=== PATIENT | male | born 1945 | race Caucasian/White ===

== ENCOUNTER 2017-11-28 13:20 | Emergency (ER) | payer OTHER, MEDICARE, SELFPAY ==
[2017-11-28 13:28] VITALS: BP 146/63; PULSE 84; RESP 18; TEMP 37.2; O2SAT 96; BMI 41.0
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
[2017-11-28 13:43] VITALS: BP 176/92; PULSE 89; RESP 20; O2SAT 95
[2017-11-28 14:15] VITALS: BP 147/81; PULSE 71; RESP 15; O2SAT 97
--- NOTE | 2017-11-28 14:27 | PC.NURSE ---
dr walsh at bedside performing FAST exam with ultrasound
[2017-11-28 14:51] VITALS: BP 144/75; PULSE 79; RESP 15; O2SAT 99
== END 2017-11-28 14:55 | disposition home or self-care (01) ==
PROVIDERS: Emergency Provider Emergency Medicine; PCP Internal Medicine
DX: R07.89 Other chest pain (principal); R04.0 Epistaxis; S80.211A Abrasion, right knee, initial encounter; S80.212A Abrasion, left knee, initial encounter; V49.9XXA Car occupant (driver) (passenger) injured in unspecified traffic accident, initial encounter
CPT/HCPCS: 30901; 71045; 99283

== ENCOUNTER 2017-11-30 10:46 | Emergency (ER) | payer OTHER, SELFPAY ==
[2017-11-30 10:53] VITALS: BP 144/61; PULSE 72; RESP 20; TEMP 36.6; O2SAT 97; BMI 41.0
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
[2017-11-30] MEDS: OXYCODONE/ACETAMINOPHEN 5/325 TABLET 1 TAB PO (11:48)
[2017-11-30 12:50] VITALS: BP 127/66; PULSE 68; RESP 94
[2017-11-30] MEDS: BACITRACIN OINT 0.9 GM PCKT 1 APPLIC TOP (12:57)
== END 2017-11-30 13:23 | disposition home or self-care (01) ==
PROVIDERS: Emergency Provider Student in an Organized Health Care Education/Training Program; PCP Internal Medicine
DX: S82.401A Unspecified fracture of shaft of right fibula, initial encounter for closed fracture (principal); R07.89 Other chest pain; V29.9XXA Motorcycle rider (driver) (passenger) injured in unspecified traffic accident, initial encounter
CPT/HCPCS: 29515; 73610; 73630; 99282; 99283

== ENCOUNTER → 2017-12-08 11:09 | Outpatient (CLI) | payer OTHER, SELFPAY ==
[2017-12-08 13:01] LABS: Add Manual Diff / Slide Review NO; Eosinophils Percent Auto 0.7 % (2-4); Hematocrit 40.7 % (41-53); Hemoglobin 14.4 g/dL (13.5-17.5); Lymphocytes Percent Auto 16.8 % (25-40); Mean Corpuscular HGB Conc 35.3 % (30-36); Mean Corpuscular Hemoglobin 32.6 PG (26-34); Mean Corpuscular Volume 92.5 fL (80-100); Monocytes Percent Auto 8.4 % (3-14); Neutrophils Absolute Auto 4600 /uL (3000-5900); Neutrophils Percent Auto 73.1 % (50-75); Platelet Count 223 X10^3/uL (150-400); Red Cell Distribution Width 13.2 % (11.6-14.8); White Blood Cell Count 6.4 X10^3/uL (4.5-11.0)
[2017-12-08 13:03] LABS: Hemoglobin A1C% w Est Avg Glu 6.8 % (4.0-6.0)
[2017-12-08 13:08] LABS: Alanine Aminotransferase 41 IU/L (21-72); Albumin Globulin Ratio 1.1 (1.0-2.8); Alkaline Phosphatase 114 U/L (38-126); Aspartate Aminotransferase 47 IU/L (17-59); BUN Creatinine Ratio 23.3 (6-22); Bilirubin Total 0.8 mg/dL (0.2-1.3); Blood Urea Nitrogen 14 mg/dL (9-20); Calcium 8.8 mg/dL (8.4-10.2); Carbon Dioxide 26 mmol/L (22-32); Chloride 98 mmol/L (98-107); Estimated Glomerular Filt Rate > 60.0 mL/min (>60); Globulin 3.8 g/dL (1.7-4.1); Glucose 133 mg/dL (80-110); HEMOLYSIS 49 (0-50); Potassium 4.9 mmol/L (3.4-5.1); Sodium 136 mmol/L (137-145); Total Protein 7.8 g/dL (6.3-8.2)
== END ==
PROVIDERS: PCP Internal Medicine; Visit Provider Internal Medicine
DX: E11.9 Type 2 diabetes mellitus without complications (principal); E11.65 Type 2 diabetes mellitus with hyperglycemia
CPT/HCPCS: 36415; 80053; 83036; 85025

== ENCOUNTER → 2018-04-09 14:30 | Outpatient (CLI) | payer OTHER, SELFPAY ==
--- NOTE | 2018-04-09 | DI.RAD.S_ITS ---
PROCEDURE: XR CERVICAL SPINE 2V OR 3V INDICATIONS: neck pain TECHNIQUE: 4 view(s) of the cervical spine were acquired. COMPARISON: None. FINDINGS: Bones: Patient is status post anterior fusion at C4-C7 levels and posterior fusion at C3 and C4 levels. No gross hardware loosening or failure is seen. Straightening of normal cervical lordosis is noted. No acute compression fracture or traumatic spondylolisthesis. Degenerative endplate changes are noted at C3-4 level. The lateral masses of C1 appear intact on the odontoid view. No suspicious bony lesions. Soft tissues: No prevertebral soft tissue swelling. IMPRESSION: Prior fusion of cervical spine from C3-C7 levels with straightening of normal cervical lordosis. No gross hardware complication. No acute compression fracture or traumatic spondylolisthesis. Dictated by: Keo Figueredo M.D. on 04/09/2018 at 15:09 Approved by: Keo Figueredo M.D. on 04/09/2018 at 15:15
== END ==
PROVIDERS: PCP Internal Medicine; Visit Provider Internal Medicine
DX: M54.2 Cervicalgia (principal); Z98.1 Arthrodesis status
CPT/HCPCS: 72040

== ENCOUNTER → 2018-06-08 13:23 | Outpatient (CLI) | payer OTHER, SELFPAY ==
--- NOTE | 2018-06-08 | DI.MRI.S_ITS ---
PROCEDURE: MR STROKE Pre- and post-contrast brain MRI, non-contrast brain MR angiogram, pre- and postcontrast neck MR angiogram INDICATIONS: ATAXIA TECHNIQUE: Brain: Noncontrast axial T1 spin echo, axial T2 fast spin echo, sagittal and axial FLAIR, coronal T2 fast spin echo, axial gradient echo, axial diffusion and ADC through the brain. After the administration of contrast, axial 3D VIBE of the cranial vasculature and brain. Brain MRA: Non-contrast 3-D time of flight MR angiogram, with multiple eutumpw-sqluqgkwi-fnqqshzxto (MIP) reformats performed. Neck MRA: Axial and sagittal TruFISP through the neck. Coronal dynamic MR angiogram during administration of contrast in the arterial and venous phases, with 3-dimenstional epimbwx-sdqqhtetk-gmefipdcjq (MIP) reformats constructed from subtraction images. COMPARISON: None. FINDINGS: Image quality: Excellent. BRAIN: CSF spaces: Ventricles are normal in size and shape. Basal cisterns are patent. No extra-axial fluid collections. Brain: No intracranial bleeds or mass effects. There is moderate diffuse cerebral volume loss. There is a mild degree of patchy high flow or signal within the periventricular and subcortical white matter, consistent with small vessel ischemic disease. Ramos-white matter interface is normal. Diffusion weighted images show no acute ischemic insults. Brainstem appears normal. Normal intravascular flow voids are present. No abnormal intracranial enhancement. Skull and face: Calvarial marrow signal is normal. Orbits appear normal. Sinuses: Sinuses and mastoids are clear. BRAIN MR ANGIOGRAM: Anterior circulation: Intracranial internal carotid arteries are normal in size and enhancement. The flow within the paired anterior cerebral arteries is normal and symmetric. The flow within the middle cerebral arteries is normal and symmetric. The anterior communicating artery is seen. No stenoses, occlusions, or aneurysms. Posterior circulation: The visualized portions of the vertebral arteries demonstrate normal caliber, and join to form a normal appearing basilar artery. The flow within the posterior cerebral arteries is normal and symmetric. No stenoses, occlusions, or aneurysms. NECK MR ANGIOGRAM: Carotids: Great vessels demonstrate a conventional anatomy as they arise from the aortic arch. The origins of the common carotid arteries appear patent. The calibers and courses of both common carotid arteries are normal. Mild diffuse stenosis of the proximal right internal carotid artery, measured at roughly 20%. Mild, roughly 20% stenosis of the proximal left internal carotid artery. Posterior circulation: High-grade right vertebral artery origin stenosis. Left vertebral artery origin is patent. More superior portions of both vertebral arteries demonstrate normal course and caliber, and join to form a normal appearing basilar artery. Miscellaneous: Moderate right subclavian artery origin stenosis. Pre-contrast images through the neck show no soft tissue abnormalities. IMPRESSION: BRAIN MRI: 1. No acute intracranial abnormality. No recent infarct. 2. Volume loss and small vessel ischemic disease. BRAIN MR ANGIOGRAM: Negative cerebral MR angiography. NECK MR ANGIOGRAM: 1. Mild bilateral internal carotid artery stenoses. 2. High-grade right vertebral artery origin stenosis. 3. Patent left vertebral artery. Dictated by: Johanna Sheriff M.D. on 06/08/2018 at 15:22 Approved by: Johanna Sheriff M.D. on 06/08/2018 at 15:29
== END ==
PROVIDERS: PCP Internal Medicine; Visit Provider Internal Medicine
DX: I65.23 Occlusion and stenosis of bilateral carotid arteries (principal); I65.01 Occlusion and stenosis of right vertebral artery; R27.0 Ataxia, unspecified
CPT/HCPCS: 70553; A9579

== ENCOUNTER → 2018-08-06 13:36 | Outpatient (CLI) | payer OTHER, SELFPAY ==
[2018-08-06 15:12] LABS: B Type Natriuretic Peptide < 100 (<100)
[2018-08-06 15:13] LABS: BUN Creatinine Ratio 26.7 (6-22); Blood Urea Nitrogen 32 mg/dL (9-20); Calcium 9.6 mg/dL (8.4-10.2); Carbon Dioxide 24 mmol/L (22-32); Chloride 98 mmol/L (98-107); Glucose 221 mg/dL (80-110); HEMOLYSIS < 15 (0-50); Potassium 4.2 mmol/L (3.4-5.1); Sodium 136 mmol/L (137-145)
== END ==
PROVIDERS: PCP Internal Medicine; Visit Provider Internal Medicine
DX: I25.10 Atherosclerotic heart disease of native coronary artery without angina pectoris (principal); E11.9 Type 2 diabetes mellitus without complications
CPT/HCPCS: 36415; 80048; 83880

== ENCOUNTER 2018-10-05 11:29 | Emergency (ER) | payer OTHER, MEDICARE, SELFPAY ==
[2018-10-05 11:40] VITALS: BP 125/68; PULSE 80; RESP 14; TEMP 36.7; O2SAT 98
--- NOTE | 2018-10-05 11:43 | DI.RAD.S_ITS ---
PROCEDURE: XR WRIST RT MIN 3V INDICATIONS: fell one week ago, pain right wrist. IN ED WR TECHNIQUE: 4 views of the wrist were acquired. COMPARISON: None. FINDINGS: Bones: No fractures or dislocations. No suspicious bony lesions. Prominent degenerative changes are noted involving the basal joint of the thumb. There also are degenerative changes involving the metacarpal phalangeal joints. Soft tissues: No suspicious soft tissue calcifications. Vascular calcifications about the wrist are present. A small metallic density is seen overlying the film. IMPRESSION: Prominent degenerative changes of the wrist without an acute fracture evident. Dictated by: Herber Najera M.D. on 10/05/2018 at 11:09 Approved by: Herber Najera M.D. on 10/05/2018 at 11:10
[2018-10-05 13:34] VITALS: PULSE 72
--- NOTE | 2018-10-05 13:43 | ED_ITS ---
HPI - Extremity Injury (Upper) <LORI Montoya - Last Filed: 10/05/18 13:55> General Chief Complaint: Extremity Injury, Upper Stated Complaint: Fell, r wrist injury Time Seen by Provider: 10/05/18 13:33 Source: patient Mode of arrival: ambulatory Limitations: no limitations History of Present Illness HPI narrative: Patient is a 73-year-old male Former smoker with history of hypertension who presents with a chief complaint of right wrist pain. He states he fell last week on an outstretched right arm and has since complained a pain in his right wrist. He has been using ktrr-[id number] pain medication for his wrist pain. Denies any numbness or tingling. He states he thought he could come and get an x-ray and leave. He denies any other injury from his fall. Related Data Home Medications Medication Instructions Recorded Confirmed losartan 100 mg PO DAILY #0 12/06/16 11/30/17 amlodipine 10 mg PO DAILY 11/28/17 11/30/17 aspirin 81 mg PO DAILY 11/28/17 11/30/17 glimepiride 4 mg PO BID 11/28/17 11/30/17 metoprolol succinate 100 mg PO DAILY 11/28/17 11/30/17 simvastatin 40 mg PO DAILY 11/28/17 11/30/17 ibuprofen [Advil] 1 dose PO PRN PRN 11/30/17 11/30/17 naproxen [Naprosyn] 1 tab PO PRN PRN 11/30/17 11/30/17 Previous Rx's Medication Instructions Recorded hydrocodone-acetaminophen [Vicodin] 1 tab PO Q4-6H PRN #14 tab 11/30/17 Allergies Allergy/AdvReac Type Severity Reaction Status Date / Time Penicillins [PENICILLINS] Allergy Unknown Verified 10/05/18 11:43 Review of Systems <OLRI Montoya - Last Filed: 10/05/18 13:55> Review of Systems GENERAL: Denies chills, fatigue, malaise, fever, sweats. HEENT: Denies sinus pain, ear pain, sore throat, difficulty swallowing, dizziness. RESPIRATORY: Denies dyspnea, cough, wheezing, hemoptysis, sputum. CARDIOVASCULAR: Denies chest pain, palpitations, orthopnea, edema, GASTROINTESTINAL: Denies nausea, vomiting, abdominal pain, diarrhea, constipation, melena. : Denies dysuria, frequency, incontinence, hematuria, urinary retention. MUSCULOSKELETAL: See HPI SKIN: See HPI NEUROLOGIC: Denies weakness, headache, numbness, change in speech, confusion, seizures, incoordination. PSYCHIATRIC: No concerning psychosocial issues. 12 point review of systems is negative except for those stated above PFSH <LORI Montoya - Last Filed: 10/05/18 13:55> Social History Smoking Status: Former smoker Exam <LORI Montoya - Last Filed: 10/05/18 13:55> Narrative Exam Narrative: GENERAL: This is a well-nourished, well-developed patient, sitting in chair HEAD: Atraumatic. Normocephalic. No temporal or scalp tenderness. EYES: Pupils equal round and reactive. Extraocular motions intact. No scleral icterus. No injection or drainage. ENT: Nose without bleeding, purulent drainage or septal hematoma. Throat without erythema, tonsillar hypertrophy or exudate. Uvula midline. Airway patent. NECK: Trachea midline. No JVD or lymphadenopathy. Supple, nontender, no meningeal signs. CARDIOVASCULAR: Regular rate and rhythm RESPIRATORY: no cough. No increased respiratory effort. EXTREMITIES: General pain to palpation right wrist. Full range of motion noted. Patient is able flex and extend right wrist. Pronate and supinate without pain. Positive radial pulses noted. patient able do thumbs up, thumbs down, make fist. BACK: Nontender without deformity or crepitance. No flank tenderness. NEURO: AOx3. SKIN: Ecchymosis noted on the dorsum of the hand/posterior aspect of the wrist on the ulnar aspect. Skin is intact. No abrasion or laceration noted. Initial Vital Signs Initial Vital Signs: Vital Signs Temperature 98.1 F 10/05/18 11:40 Pulse Rate 80 10/05/18 11:40 Respiratory Rate 14 10/05/18 11:40 Blood Pressure 125/68 10/05/18 11:40 Pulse Oximetry 98 10/05/18 11:40 <Kala Callejas DO - Last Filed: 10/08/18 08:54> Initial Vital Signs Initial Vital Signs: Vital Signs Temperature 98.1 F 10/05/18 11:40 Pulse Rate 80 10/05/18 11:40 Respiratory Rate 14 10/05/18 11:40 Blood Pressure 125/68 10/05/18 11:40 Pulse Oximetry 98 10/05/18 11:40 Course <LORI Montoya - Last Filed: 10/05/18 13:55> Orders Ordered: ED Orders 10/05/18 11:43 XR wrist RT min 3V Stat Vital Signs - 8 hr 10/05/18 11:40 10/05/18 13:34 Temperature 98.1 F Pulse Rate 80 Pulse Rate [Right Radial] 72 Respiratory Rate 14 Blood Pressure 125/68 Pulse Oximetry 98 <Kala Callejas DO - Last Filed: 10/08/18 08:54> Orders Ordered: ED Orders 10/05/18 11:43 XR wrist RT min 3V Stat Vital Signs - 8 hr 10/05/18 11:40 10/05/18 13:34 Temperature 98.1 F Pulse Rate 80 Pulse Rate [Right Radial] 72 Respiratory Rate 14 Blood Pressure 125/68 Pulse Oximetry 98 MDM - Extremity Injury (Upper) <LORI Montoya - Last Filed: 10/05/18 13:55> Imaging Data wrist fracture: Radiologist's impression: Anthony Enrique 73 M 1945 [place] [address] XRay Report Signed Patient: Anthony Enrique LMR#: [id number] : [id number]:[id number] Age/Sex: 73 / MDate of Service: 10/05/18 Loc: ED Accession Number: [id number] Procedure: XR wrist RT min 3V Ordering Provider: Kala Callejas D.O. PROCEDURE: XR WRIST RT MIN 3V INDICATIONS: fell one week ago, pain right wrist. IN ED WR TECHNIQUE: 4 views of the wrist were acquired. COMPARISON: None. FINDINGS: Bones: No fractures or dislocations. No suspicious bony lesions. Prominent degenerative changes are noted involving the basal joint of the thumb. There also are degenerative changes involving the metacarpal phalangeal joints. Soft tissues: No suspicious soft tissue calcifications. Vascular calcifications about the wrist are present. A small metallic density is seen overlying the film. IMPRESSION: Prominent degenerative changes of the wrist without an acute fracture evident. Dictated by: Herber Najera M.D. on 10/05/2018 at 11:09 Approved by: Herber Najera M.D. on 10/05/2018 at 11:10 [facility] Narrative Medical decision making narrative: The patient is a 73-year-old male who presents with a chief complaint of right wrist pain after ground level fall last week. He is unable to state clearly why he did not seek care when he fell. He does not have any acute fractures notable on his x-ray. I discussed at length continued conservative measures including rest ice compression elevation as well as lbxh-xda-yfzonhz pain medication as needed and able. I offered to wrap his wrist with an Molina wrap to the emergency department he declined. I encouraged him to follow up with his primary care provider in the next few days. Patient questions or concerns upon discharge. return precautions of any acute concerns discussed. Discharge Plan Departure Patient Disposition: Home Clinical Impression: Acute wrist pain Qualifiers: Laterality: right Qualified Code(s): M25.531 - Pain in right wrist Contusion Qualifiers: Encounter type: initial encounter Contusion area: wrist Laterality: right Qualified Code(s): S60.211A - Contusion of right wrist, initial encounter Discharge Date/Time: 10/05/18 14:04 Interventions: ED Discharge Assessment Last Done: 10/05/18 14:04 Instructions: DI for Contusion, How To Perform RICE (Rest, Ice, Compress, Elevate), DI for Wrist Pain Activity Restrictions/Additional Instructions: Your x-ray shows no sign of fracture today. There are some degenerative changes noted, indicating the possibility of arthritis. Please use [id number] pain medications as needed and able. Please use rest ice compression elevation. Please follow up with her primary care provider if worsening or no improvement in the next few weeks. Please come back to the emergency department for any acute concerns. Prescriptions: No Action losartan 100 MG tablet 100 mg PO DAILY Qty: 0 RF: 0 metoprolol succinate 100 mg tablet extended release 24 hr 100 mg PO DAILY RF: 0 aspirin 81 mg Tablet,Delayed Release (Dr/Ec) 81 mg PO DAILY RF: 0 simvastatin 40 mg tablet 40 mg PO DAILY RF: 0 amlodipine 10 mg tablet 10 mg PO DAILY RF: 0 glimepiride 4 mg tablet 4 mg PO BID RF: 0 naproxen [Naprosyn] 500 mg Tablet 1 tab PO PRN PRN (Reason: Pain, Moderate) RF: 0 ibuprofen [Advil] 200 mg Tablet 1 dose PO PRN PRN (Reason: Pain, Moderate) RF: 0 hydrocodone-acetaminophen [Vicodin] 5-300 mg tablet 1 tab PO Q4-6H PRN (Reason: pain) Qty: 14 RF: 0 Referrals: Evan Jimenez MD [Primary Care Provider] - <Kala Callejas DO - Last Filed: 10/08/18 08:54> Cosign ED Attending Cosignature Attestation: I was immediately available in the department for consultation. This documentation has been reviewed and I agree with assessment and plan. Supervised by Kala Callejas DO
[2018-10-05 14:04] VITALS: PULSE 74; RESP 18
== END 2018-10-05 14:04 | disposition home or self-care (01) ==
PROVIDERS: Emergency Provider Nurse Practitioner Family; PCP Internal Medicine
DX: M25.531 Pain in right wrist (principal); W19.XXXA Unspecified fall, initial encounter
CPT/HCPCS: 73110; 99282; 99283

== ENCOUNTER → 2019-09-17 10:18 | Outpatient (CLI) | payer OTHER, MEDICARE, SELFPAY ==
[2019-09-17 11:31] LABS: Add Manual Diff / Slide Review NO; Basophils Absolute Auto 100 /uL (0-100); Basophils Percent Auto 1.1 % (0-2); Eosinophils Absolute Auto 100 /uL (0-450); Eosinophils Percent Auto 1.7 % (2-4); Hematocrit 35.7 % (41-53); Hemoglobin 11.9 g/dL (13.5-17.5); Lymphocytes Absolute Auto 1500 /uL (1100-4500); Lymphocytes Percent Auto 19.8 % (25-40); Mean Corpuscular HGB Conc 33.3 % (30-36); Mean Corpuscular Hemoglobin 30.3 PG (26-34); Mean Corpuscular Volume 91.1 fL (80-100); Monocytes Absolute Auto 400 /uL (0-900); Monocytes Percent Auto 5.9 % (3-14); Neutrophils Absolute Auto 5400 /uL (1500-7000); Neutrophils Percent Auto 71.5 % (50-75); Platelet Count 311 X10^3/uL (150-400); Red Blood Cell Count 3.92 X10^6/uL (4.5-5.9); Red Cell Distribution Width 14.7 % (11.6-14.8); White Blood Cell Count 7.6 X10^3/uL (4.5-11.0)
[2019-09-17 12:01] LABS: BUN Creatinine Ratio 14.8 (6-22); Blood Urea Nitrogen 20 mg/dL (9-20); Calcium 9.5 mg/dL (8.4-10.2); Carbon Dioxide 31 mmol/L (22-32); Chloride 99 mmol/L (98-107); Estimated Glomerular Filt Rate 51.4 mL/min (>60); Glucose 224 mg/dL (80-110); HEMOLYSIS < 15 (0-50); Potassium 3.8 mmol/L (3.4-5.1); Sodium 138 mmol/L (137-145)
== END ==
PROVIDERS: Internal Medicine Nephrology; PCP Internal Medicine; Referring Provider Internal Medicine Nephrology; Visit Provider Internal Medicine Nephrology
DX: N18.3 Chronic kidney disease, stage 3 (moderate) (principal)
CPT/HCPCS: 36415; 80048; 85025

== ENCOUNTER 2024-01-25 05:57 | Emergency (ER) | payer MEDICARE, OTHER, SELFPAY ==
[2024-01-25] VITALS (7 sets, daily range): BP systolic 122–154; BP diastolic 58–71; PULSE 60–73; RESP 18; TEMP 36.7; O2SAT 95–97; BMI 31.1
--- NOTE | 2024-01-25 06:23 | ED_ITS ---
HPI - Headache <Kala Moreno MD - Last Filed: 01/26/24 18:05> General Chief Complaint: Headache Stated Complaint: urinary incont., migraine Time Seen by Provider: 01/25/24 06:01 Mode of arrival: EMS History of Present Illness HPI Narrative: 79-year-old male presents by EMS from home for urinary incontinence. Patient was extremely poor historian, most history provided by medics. EMS state that they were called to the house by the patient, stating that he woke up urinating on himself and could not stop. He also told medics that he had had a migraine for the last month. Patient told medics that he would like to be checked out in the emergency department. On arrival patient tells me that he was supposed to go to an imaging center for his vision today in [place]. He states that he has something wrong with his eyes that he was supposed to see an eye doctor for. Currently denying any pain or acute complaints. Related Data Home Medications Medication Instructions Recorded Confirmed losartan 100 mg tablet 100 mg PO DAILY ##0 12/06/16 11/30/17 amlodipine 10 mg tablet 10 mg PO DAILY 11/28/17 11/30/17 aspirin 81 mg tablet,delayed 81 mg PO DAILY 11/28/17 11/30/17 release glimepiride 4 mg tablet 4 mg PO BID 11/28/17 11/30/17 metoprolol succinate 100 mg 100 mg PO DAILY 11/28/17 11/30/17 tablet,extended release 24 hr simvastatin 40 mg tablet 40 mg PO DAILY 11/28/17 11/30/17 ibuprofen 200 mg tablet (Advil) 1 dose PO PRN PRN Pain, Moderate 11/30/17 11/30/17 naproxen 500 mg tablet (Naprosyn) 1 tab PO PRN PRN Pain, Moderate 11/30/17 11/30/17 Previous Rx's Medication Instructions Recorded hydrocodone 5 mg-acetaminophen 300 1 tab PO Q4-6H PRN pain #14 tabs 11/30/17 mg tablet (Vicodin) Allergies Allergy/AdvReac Type Severity Reaction Status Date / Time Penicillins [PENICILLINS] Allergy Unknown Verified 10/05/18 11:43 Patient History <Kala Moreno MD - Last Filed: 01/26/24 18:05> Social History Smoking Status: Former smoker Smoking Status: Former smoker alcohol intake frequency: 3 or more drinks per day Substance Use Type: does not use Exam <Kala Moreno MD - Last Filed: 01/26/24 18:05> Initial Vital Signs Initial Vital Signs: Vital Signs Temperature 98.1 F 01/25/24 05:58 Pulse Rate 73 01/25/24 05:58 Respiratory Rate 18 01/25/24 05:58 Blood Pressure 136/64 01/25/24 05:58 Pulse Oximetry 97 01/25/24 05:58 Oxygen Delivery Method Room Air 01/25/24 05:58 Const: Awake, alert, no acute distress Cardiac: regular rate, regular rhythm RESP: unlabored, clear bilaterally, no wheezing GI: Soft, nontender, nondistended Skin: Warm, Dry, intact, no rashes Neuro: AO x2, CN II-XII grossly intact, moves all extremities <Baldo Gurrola DO - Last Filed: 01/25/24 09:03> Initial Vital Signs Initial Vital Signs: Vital Signs Temperature 98.1 F 01/25/24 05:58 Pulse Rate 73 01/25/24 05:58 Respiratory Rate 18 01/25/24 05:58 Blood Pressure 136/64 01/25/24 05:58 Pulse Oximetry 97 01/25/24 05:58 Oxygen Delivery Method Room Air 01/25/24 05:58 Course <Kala Moreno MD - Last Filed: 01/26/24 18:05> Orders Ordered: ED Orders 01/25/24 06:24 CBC Auto Diff [Complete Blood Count AUTO DIFF] Stat CMP [Comprehensive Metabolic Panel] Stat 01/25/24 06:54 Urinalysis and Microscopic Stat 01/25/24 06:56 CT head/brain wo con Stat Vital Signs Vital signs: Vital Signs - 8 hr 01/25/24 05:58 01/25/24 07:00 01/25/24 07:01 Temperature 98.1 F Pulse Rate 73 61 61 Respiratory Rate 18 Blood Pressure 136/64 Pulse Oximetry 97 96 95 Oxygen Delivery Method Room Air Room Air 01/25/24 07:01 01/25/24 07:30 01/25/24 07:51 Temperature Pulse Rate 64 Respiratory Rate Blood Pressure 122/58 L 136/63 Pulse Oximetry 97 Oxygen Delivery Method 01/25/24 07:51 01/25/24 08:00 01/25/24 08:00 Temperature Pulse Rate 61 60 Respiratory Rate Blood Pressure 132/65 Pulse Oximetry 96 95 Oxygen Delivery Method Room Air Room Air <Baldo Gurrola DO - Last Filed: 01/25/24 09:03> Orders Ordered: ED Orders 01/25/24 06:24 CBC Auto Diff [Complete Blood Count AUTO DIFF] Stat CMP [Comprehensive Metabolic Panel] Stat 01/25/24 06:54 Urinalysis and Microscopic Stat 01/25/24 06:56 CT head/brain wo con Stat Vital Signs Vital signs: Vital Signs - 8 hr 01/25/24 05:58 01/25/24 07:00 01/25/24 07:01 Temperature 98.1 F Pulse Rate 73 61 61 Respiratory Rate 18 Blood Pressure 136/64 Pulse Oximetry 97 96 95 Oxygen Delivery Method Room Air Room Air 01/25/24 07:01 01/25/24 07:30 01/25/24 07:51 Temperature Pulse Rate 64 Respiratory Rate Blood Pressure 122/58 L 136/63 Pulse Oximetry 97 Oxygen Delivery Method 01/25/24 07:51 01/25/24 08:00 01/25/24 08:00 Temperature Pulse Rate 61 60 Respiratory Rate Blood Pressure 132/65 Pulse Oximetry 96 95 Oxygen Delivery Method Room Air Room Air MDM - Headache <Kala Moreno MD - Last Filed: 01/26/24 18:05> Lab Data 01/25/24 06:24 01/25/24 06:24 Labs: Lab Results 01/25/24 01/25/24 Range/Units 06:24 06:54 WBC 5.9 (4.5-11.0) X10^3/uL RBC 4.16 L (4.5-5.9) X10^6/uL Hgb 12.0 L (13.5-17.5) g/dL Hct 36.1 L (41-53) % MCV 86.8 (80-100) fL MCH 28.7 (26-34) PG MCHC 33.1 (30-36) % RDW 15.6 H (11.6-14.8) % Plt Count 161 (150-400) X10^3/uL Neut % (Auto) 69.1 (50-75) % Lymph % (Auto) 21.5 L (25-40) % [place] % (Auto) 7.7 (3-14) % Eos % (Auto) 0.7 L (2-4) % Baso % (Auto) 1.0 (0-2) % Neut # (Auto) 4000 (3342-6228) /uL Lymph # (Auto) 1300 (6718-7100) /uL [place] # (Auto) 500 (0-900) /uL Eos # (Auto) 0 (0-450) /uL Baso # (Auto) 100 (0-100) /uL Sodium 140 (137-145) mmol/L Potassium 3.2 L (3.4-5.1) mmol/L Chloride 106 (98-107) mmol/L Carbon Dioxide 23 (22-32) mmol/L BUN 27 H (9-20) mg/dL Creatinine 1.58 H (0.66-1.25) mg/dL Estimated GFR 44 L (>60) mL/min BUN/Creatinine Ratio 17.1 (6-22) Glucose 185 H (80-110) mg/dL Calcium 9.2 (8.4-10.2) mg/dL Total Bilirubin 0.5 (0.2-1.3) mg/dL AST 41 (17-59) IU/L ALT 26 (<50) IU/L Alkaline Phosphatase 108 (38-126) U/L Total Protein 6.8 (6.3-8.2) g/dL Albumin 3.5 (3.5-5.0) g/dL Globulin 3.3 (1.7-4.1) g/dL Albumin/Globulin Ratio 1.1 (1.0-2.8) Urine Color Yellow Urine Appearance Clear Urine pH 5.0 (4.5-8.0) Ur Specific [place] 1.020 (1.000-1.035) Urine Protein 2+ H (Negative) Urine Glucose (UA) 3+ H (Negative) g/dL Urine Ketones Negative (NEGATIVE) Urine Occult Blood 3+ H (Negative) Urine Nitrate Negative (Negative) Urine Bilirubin Negative (NEGATIVE) Urine Urobilinogen 1.0 (0.2) E.U./dL Ur Leukocyte Esterase Negative (NEGATIVE) Urine RBC 1-5/hpf (0-5/HPF) Urine WBC None seen (0-5/HPF) Ur Squamous Epith Cells None seen (0-5/HPF) Urine Bacteria None seen (None) Ur Culture Indicated? Cult not indicated Vol Urine Centrifuged 10ml (spun) Urine Dip Bedside Urine Glucose 1000 mg/dl Bedside Urine Bilirubin - Negative Bedside Urine Ketone - Negative Urine Specific [place] 1.015 Bedside Urine Occult Blood +++ Bedside Urine pH 5.5 Bedside Urine Protein ++ 100 Bedside Urine Urobilinogen - Negative Bedside Urine Nitrite - Negative Bedside Urine Leukocytes - Negative Esterase <Baldo Gurrola DO - Last Filed: 01/25/24 09:03> Lab Data Attestation: I reviewed the patient's lab results. Labs: Lab Results 01/25/24 01/25/24 Range/Units 06:24 06:54 WBC 5.9 (4.5-11.0) X10^3/uL RBC 4.16 L (4.5-5.9) X10^6/uL Hgb 12.0 L (13.5-17.5) g/dL Hct 36.1 L (41-53) % MCV 86.8 (80-100) fL MCH 28.7 (26-34) PG MCHC 33.1 (30-36) % RDW 15.6 H (11.6-14.8) % Plt Count 161 (150-400) X10^3/uL Neut % (Auto) 69.1 (50-75) % Lymph % (Auto) 21.5 L (25-40) % [place] % (Auto) 7.7 (3-14) % Eos % (Auto) 0.7 L (2-4) % Baso % (Auto) 1.0 (0-2) % Neut # (Auto) 4000 (4515-0814) /uL Lymph # (Auto) 1300 (1852-1049) /uL [place] # (Auto) 500 (0-900) /uL Eos # (Auto) 0 (0-450) /uL Baso # (Auto) 100 (0-100) /uL Sodium 140 (137-145) mmol/L Potassium 3.2 L (3.4-5.1) mmol/L Chloride 106 (98-107) mmol/L Carbon Dioxide 23 (22-32) mmol/L BUN 27 H (9-20) mg/dL Creatinine 1.58 H (0.66-1.25) mg/dL Estimated GFR 44 L (>60) mL/min BUN/Creatinine Ratio 17.1 (6-22) Glucose 185 H (80-110) mg/dL Calcium 9.2 (8.4-10.2) mg/dL Total Bilirubin 0.5 (0.2-1.3) mg/dL AST 41 (17-59) IU/L ALT 26 (<50) IU/L Alkaline Phosphatase 108 (38-126) U/L Total Protein 6.8 (6.3-8.2) g/dL Albumin 3.5 (3.5-5.0) g/dL Globulin 3.3 (1.7-4.1) g/dL Albumin/Globulin Ratio 1.1 (1.0-2.8) Urine Color Yellow Urine Appearance Clear Urine pH 5.0 (4.5-8.0) Ur Specific [place] 1.020 (1.000-1.035) Urine Protein 2+ H (Negative) Urine Glucose (UA) 3+ H (Negative) g/dL Urine Ketones Negative (NEGATIVE) Urine Occult Blood 3+ H (Negative) Urine Nitrate Negative (Negative) Urine Bilirubin Negative (NEGATIVE) Urine Urobilinogen 1.0 (0.2) E.U./dL Ur Leukocyte Esterase Negative (NEGATIVE) Urine RBC 1-5/hpf (0-5/HPF) Urine WBC None seen (0-5/HPF) Ur Squamous Epith Cells None seen (0-5/HPF) Urine Bacteria None seen (None) Ur Culture Indicated? Cult not indicated Vol Urine Centrifuged 10ml (spun) Urine Dip Bedside Urine Glucose 1000 mg/dl Bedside Urine Bilirubin - Negative Bedside Urine Ketone - Negative Urine Specific [place] 1.015 Bedside Urine Occult Blood +++ Bedside Urine pH 5.5 Bedside Urine Protein ++ 100 Bedside Urine Urobilinogen - Negative Bedside Urine Nitrite - Negative Bedside Urine Leukocytes - Negative Esterase Imaging Data CT scan - head: Radiologist's Impression: PROCEDURE: CT HEAD/BRAIN WO CON INDICATIONS: intermittent headache x1 mo TECHNIQUE: Noncontrast 4.5 mm thick angled axial sections acquired from the foramen magnum to the vertex, with coronal and sagittal reformats. For radiation dose reduction, the following was used: automated exposure control, adjustment of mA and/or kV according to patient size. COMPARISON: [facility], MR, MR STROKE, 06/08/2018, 13:50. [facility], CT, CT HEAD WITHOUT CONTRAST, 11/16/2021, 15:48. FINDINGS: Image quality: Diagnostic. CSF spaces: Basal cisterns are patent. No extra-axial fluid collections. The ventricles are symmetric in size and shape. Brain: No intracranial bleeds or masses. There is cerebral volume loss for age, with resultant ventricular and sulcal prominence. There are periventricular and deep white matter chronic small vessel ischemic changes. There is intracranial internal carotid artery atherosclerosis. Skull and face: Calvarium and visualized facial bones appear intact, without suspicious lesions. Sinuses: Visualized sinuses and mastoids are clear. IMPRESSION: No acute intracranial pathology. No significant changes from previous studies. No discrepancies from preliminary reading. MDM Narrative Medical decision making narrative: Dr Gurrola: Received turned over. Review patient's history and physical exam. With the patient's workup up to this point. His head CT is unremarkable. Urinalysis is unremarkable. The Crump catheter was placed secondary to his issues with urinary incontinence. Had a discussion with him regarding his urinary issues. Unsure as to whether or not the urinary incontinence has been happening for awhile or just over the evening. He has known prostate issues. Plan will be to leave the Crump catheter in place and have him follow-up with urology as an outpatient. No changes to any of his other medications. Will discharge patient home with outpatient follow-up. Discharge Plan Departure Patient Disposition: Home Clinical Impression: Urinary incontinence Instructions: How to Care for Your Crump Catheter -- Male, DI for Urinary Incontinence Activity Restrictions/Additional Instructions: You are going to need follow-up with both your primary doctor and also Urology. You can contact the urology office with the number provided below for a follow- up. This should be done within the next week or so. Return to the emergency department for new symptoms. Prescriptions: No Action losartan 100 MG tablet 100 mg PO DAILY Qty: 0 metoprolol succinate 100 mg tablet extended release 24 hr 100 mg PO DAILY aspirin 81 mg Tablet,Delayed Release (Dr/Ec) 81 mg PO DAILY simvastatin 40 mg tablet 40 mg PO DAILY amlodipine 10 mg tablet 10 mg PO DAILY glimepiride 4 mg tablet 4 mg PO BID naproxen [Naprosyn] 500 mg Tablet 1 tab PO PRN PRN (Reason: Pain, Moderate) Patient Comments: tried one dose from 's former medication as advised from visit two days ago. ibuprofen [Advil] 200 mg Tablet 1 dose PO PRN PRN (Reason: Pain, Moderate) Patient Comments: patient states tried for pain but ineffective hydrocodone-acetaminophen [Vicodin] 5-300 mg tablet 1 tab PO Q4-6H PRN (Reason: pain) Qty: 14 0RF Referrals: Say Ledesma MD [Physician] - Evan Jimenez MD [Primary Care Provider] - Stand Alone Forms: Patient Portal/API
[2024-01-25 06:34] LABS: Add Manual Diff / Slide Review NO; Basophils Absolute Auto 100 /uL (0-100); Eosinophils Absolute Auto 0 /uL (0-450); Eosinophils Percent Auto 0.7 % (2-4); Hematocrit 36.1 % (41-53); Lymphocytes Absolute Auto 1300 /uL (1100-4500); Lymphocytes Percent Auto 21.5 % (25-40); Mean Corpuscular HGB Conc 33.1 % (30-36); Mean Corpuscular Hemoglobin 28.7 PG (26-34); Mean Corpuscular Volume 86.8 fL (80-100); Monocytes Absolute Auto 500 /uL (0-900); Monocytes Percent Auto 7.7 % (3-14); Neutrophils Absolute Auto 4000 /uL (1500-7000); Neutrophils Percent Auto 69.1 % (50-75); Platelet Count 161 X10^3/uL (150-400); Red Blood Cell Count 4.16 X10^6/uL (4.5-5.9); Red Cell Distribution Width 15.6 % (11.6-14.8); White Blood Cell Count 5.9 X10^3/uL (4.5-11.0)
[2024-01-25 06:53] LABS: Alanine Aminotransferase 26 IU/L (<50); Albumin 3.5 g/dL (3.5-5.0); Albumin Globulin Ratio 1.1 (1.0-2.8); Alkaline Phosphatase 108 U/L (38-126); Aspartate Aminotransferase 41 IU/L (17-59); BUN Creatinine Ratio 17.1 (6-22); Bilirubin Total 0.5 mg/dL (0.2-1.3); Blood Urea Nitrogen 27 mg/dL (9-20); Calcium 9.2 mg/dL (8.4-10.2); Carbon Dioxide 23 mmol/L (22-32); Chloride 106 mmol/L (98-107); Estimated Glomerular Filt Rate 44 mL/min (>60); Globulin 3.3 g/dL (1.7-4.1); Glucose 185 mg/dL (80-110); HEMOLYSIS < 15 (0-50); Potassium 3.2 mmol/L (3.4-5.1); Sodium 140 mmol/L (137-145); Total Protein 6.8 g/dL (6.3-8.2)
--- NOTE | 2024-01-25 06:56 | DI.CT.S_ITS ---
PROCEDURE: CT HEAD/BRAIN WO CON INDICATIONS: intermittent headache x1 mo TECHNIQUE: Noncontrast 4.5 mm thick angled axial sections acquired from the foramen magnum to the vertex, with coronal and sagittal reformats. For radiation dose reduction, the following was used: automated exposure control, adjustment of mA and/or kV according to patient size. COMPARISON: [facility], MR, MR STROKE, 06/08/2018, 13:50. [facility], CT, CT HEAD WITHOUT CONTRAST, 11/16/2021, 15:48. FINDINGS: Image quality: Diagnostic. CSF spaces: Basal cisterns are patent. No extra-axial fluid collections. The ventricles are symmetric in size and shape. Brain: No intracranial bleeds or masses. There is cerebral volume loss for age, with resultant ventricular and sulcal prominence. There are periventricular and deep white matter chronic small vessel ischemic changes. There is intracranial internal carotid artery atherosclerosis. Skull and face: Calvarium and visualized facial bones appear intact, without suspicious lesions. Sinuses: Visualized sinuses and mastoids are clear. IMPRESSION: No acute intracranial pathology. No significant changes from previous studies. No discrepancies from preliminary reading. Dictated by: Keo Figueredo M.D. on 01/25/2024 at 8:03 Approved by: Keo Figueredo M.D. on 01/25/2024 at 8:04
[2024-01-25 07:11] LABS: Appearance Urine UA CLEAR; Bilirubin Urine UA NEGATIVE (NEGATIVE); Color Urine UA YELLOW; Glucose Urine UA 3+ g/dL (Negative); Ketones Urine UA NEGATIVE (NEGATIVE); Leukocyte Esterase Urine UA NEGATIVE (NEGATIVE); Nitrite Urine UA NEGATIVE (Negative); Occult Blood Urine UA 3+ (Negative); Protein Urine UA 2+ (Negative)
[2024-01-25 07:15] LABS: Urine Volume 10mL (spun)
[2024-01-25 07:17] LABS: Bacteria Urine None Seen; Culture Indicated Urine Cult Not Indicated; RBC Urine 1-5/HPF (0-5/HPF); Squamous Epithelial Cell Urine None Seen (0-5/HPF); WBC Urine None Seen (0-5/HPF)
== END 2024-01-25 09:10 | disposition home or self-care (01) ==
PROVIDERS: Emergency Medicine; Emergency Provider Emergency Medicine; PCP Internal Medicine
DX: R32 Unspecified urinary incontinence (principal); R51.9 Headache, unspecified
CPT/HCPCS: 70450; 80053; 81001; 81003; 85025; 99283; 99284

== ENCOUNTER → 2024-02-21 10:38 | Outpatient (CLI) | payer MEDICARE, OTHER, SELFPAY ==
[2024-02-21 11:55] LABS: Hemoglobin A1C% w Est Avg Glu 6.8 % (4.0-6.0)
[2024-02-21 12:13] LABS: BUN Creatinine Ratio 16.9 (6-22); Blood Urea Nitrogen 23 mg/dL (9-20); Calcium 9.3 mg/dL (8.4-10.2); Carbon Dioxide 23 mmol/L (22-32); Chloride 104 mmol/L (98-107); Cholesterol 90 mg/dL (140-199); Estimated Glomerular Filt Rate 52 mL/min (>60); Glucose 173 mg/dL (80-110); HDL Cholesterol 44 mg/dL (40-60); HEMOLYSIS 16 (0-50); LDL Cholesterol Calculated 24 mg/dL (<100); Potassium 4.8 mmol/L (3.4-5.1); Sodium 138 mmol/L (137-145); Triglycerides 111 mg/dL (35-150)
== END ==
PROVIDERS: Referring Provider Family Medicine; Visit Provider Family Medicine
DX: E11.40 Type 2 diabetes mellitus with diabetic neuropathy, unspecified (principal); I10 Essential (primary) hypertension; E78.5 Hyperlipidemia, unspecified
CPT/HCPCS: 36415; 80048; 80061; 83036

== ENCOUNTER → 2024-03-13 14:00 | Outpatient (CLI) | payer MEDICARE, OTHER, SELFPAY ==
[2024-03-13 14:31] LABS: Appearance Urine UA CLEAR; Bilirubin Urine UA NEGATIVE (NEGATIVE); Color Urine UA YELLOW; Glucose Urine UA 3+ g/dL (Negative); Ketones Urine UA NEGATIVE (NEGATIVE); Leukocyte Esterase Urine UA NEGATIVE (NEGATIVE); Nitrite Urine UA NEGATIVE (Negative); Occult Blood Urine UA NEGATIVE (Negative); Protein Urine UA TRACE (Negative); Specific Gravity Urine UA 1.015 (1.000-1.035)
[2024-03-13 14:50] LABS: Bacteria Urine None Seen; Calcium Oxalate Crystals Urine Occasional; Culture Indicated Urine Cult Not Indicated; RBC Urine None Seen (0-5/HPF); Squamous Epithelial Cell Urine 1-5 /HPF (0-5/HPF); Urine Volume 10mL (spun); WBC Urine 1-5/HPF (0-5/HPF)
[2024-03-13 16:43] LABS: Creatinine Urine Random 61.34 mg/dL; Protein (Total) Urine Random 40 mg/dL (0-12); Protein Creatinine Ratio Urine 0.65 GRAM/24H
[2024-03-13 16:46] LABS: Microalbumin Urine Random 4.1 mg/dL (0-1.6)
== END ==
LOC: LAB 14:02
PROVIDERS: Referring Provider Internal Medicine Nephrology; Visit Provider Internal Medicine Nephrology
DX: I12.9 Hypertensive chronic kidney disease with stage 1 through stage 4 chronic kidney disease, or unspecified chronic kidney disease (principal); N18.31 Chronic kidney disease, stage 3a; E11.22 Type 2 diabetes mellitus with diabetic chronic kidney disease
CPT/HCPCS: 81001; 82043; 82570; 84156

== ENCOUNTER 2024-06-30 05:39 | Emergency (ER) | payer MEDICARE, OTHER, SELFPAY ==
[2024-06-30 05:42] VITALS: BP 156/67; PULSE 84; O2SAT 94
[2024-06-30 05:44] VITALS: BP 156/67; PULSE 82; RESP 18; TEMP 36.9; O2SAT 98; BMI 27.5
--- NOTE | 2024-06-30 05:53 | PC.NURSE ---
Dr. Hernandez at bedside
--- NOTE | 2024-06-30 05:53 | ED.FALL ---
HPI - Fall General Chief Complaint: Fall Stated Complaint: GLF Time Seen by Provider: 06/30/24 05:51 Source: patient and EMS Mode of arrival: EMS History of Present Illness HPI Narrative: Patient 79-year-old male history of diabetes hyperlipidemia hypertension presenting today with a ground level fall. Reports he got up to use the restroom and on the way back tripped over his cane landing and hitting his head. No loss of consciousness no nausea vomiting numbness tingling or weakness. He does have skin tear on the right side. He does not take anticoagulation but does take 81 mg aspirin daily denies any other injury. Related Data Home Medications Medication Instructions Recorded Confirmed amlodipine 5 mg tablet 5 mg PO DAILY 02/16/24 02/16/24 bupropion HCl 150 mg 24 hr tablet, 150 mg PO DAILY 02/16/24 02/16/24 extended release carvedilol 6.25 mg tablet 6.25 mg PO BID 02/16/24 02/16/24 empagliflozin 25 mg tablet 25 mg PO DAILY 02/16/24 02/16/24 (Jardiance) flash glucose sensor (FreeStyle #1 ea 02/16/24 02/16/24 Davin 2 Sensor kit) ketoconazole 2 % shampoo topical QWEEK 02/16/24 02/16/24 nystatin 100,000 unit/gram topical 1 applic topical BID 02/16/24 02/16/24 cream rosuvastatin 40 mg tablet 40 mg PO DAILY 02/16/24 02/16/24 tamsulosin 0.4 mg capsule mg PO DAILY 02/16/24 02/16/24 Allergies Allergy/AdvReac Type Severity Reaction Status Date / Time Penicillins [PENICILLINS] Allergy Unknown Verified 02/16/24 14:52 Patient History Medical History Vision disorder Hearing decreased COPD (chronic obstructive pulmonary disease) Physical deconditioning Hyperlipidemia Type 2 diabetes mellitus with diabetic neuropathy, unspecified Social History Smoking Status: Former smoker Smoking Status: Former smoker alcohol intake frequency: 3 or more drinks per day Exam Initial Vital Signs Initial Vital Signs: Vital Signs Pulse Rate 84 06/30/24 05:42 Blood Pressure 156/67 H 12/22/24 05:42 Pulse Oximetry 94 06/30/24 05:42 GENERAL: Alert 79-year-old male HEENT: Head right parietal area skin tear noted. No laceration, no depression or crepitation,EOMI, pupils reactive, face symmetric, moist mucous membranes NECK: No vertebral tenderness no step-off CARDIOVASCULAR: Regular rate and rhythm without murmurs, rubs or gallops. RESPIRATORY: Breath sounds equal bilaterally, no wheezes rales or rhonchi. EXTREMITIES: Normal range of motion, no clubbing or edema. Neurovascularly intact NEUROLOGICAL: Alert and oriented x4.Normal gait and speech. SKIN: Warm, dry, no laceration, no petechiae, no rashes or lesions. Course Vital Signs Vital signs: Vital Signs - 8 hr 06/30/24 05:44 Temperature 98.4 F Pulse Rate 82 Respiratory Rate 18 Blood Pressure 156/67 H Pulse Oximetry 98 Oxygen Delivery Method Room Air MDM - Fall MDM Narrative Medical decision making narrative: A 79-year-old male presents today after mechanical trip and fall. He has a skin tear but no crepitation or depression. He has not had any nausea vomiting or loss consciousness. No need for head CT. Area washed out and dressing placed Polish CT Head Injury/Trauma Rule from [email or web address] on 06/30/2024 All calculations should be rechecked by clinician prior to use RESULT SUMMARY: Consider CT The Polish CT Head Rule cannot rule out need for imaging. Consider CT. INPUTS: Age <16 years ?> 0 = No Patient on blood thinners ?> 0 = No Seizure after injury ?> 0 = No GCS <15 at 2 hours post-injury ?> 0 = No Suspected open or depressed skull fracture ?> 0 = No Any sign of basilar skull fracture? ?> 0 = No >= episodes of vomiting ?> 0 = No Age >=5 years ?> 1 = Yes Retrograde amnesia to the event >=30 minutes ?> 0 = No ?Dangerous? mechanism? ?> 0 = No Discharge Plan Departure Patient Disposition: Home Clinical Impression: Closed head injury, Skin tear Activity Restrictions/Additional Instructions: *You have been diagnosed with skin tear, closed head injury *What to do: Keep dressing on about 3-5 days it is water May keep clean and dry with soap and water apply antibiotic ointment *Continue to take medications as directed Tylenol as needed for pain *Follow up with your primary care provider in 2-3 days or call [phone] *Return to ER if you should have increasing redness swelling persistent vomiting [or] any new, worsening or concerning symptoms Prescriptions: No Action bupropion HCl 150 mg tablet extended release 24 hr 150 mg PO DAILY Jardiance 25 mg tablet 25 mg PO DAILY nystatin 100,000 unit/gram cream 1 applic topical BID (DME) FreeStyle Davin 2 Sensor Kit See Rx Instructions .ROUTE .MEDSUPPLY Qty: 1 Patient Comments: apply 1 SENSOR to back OF UPPER ARM REMOVE AND REPLACE every 14 d... (REFER TO PRESCRIPTION NOTES). Rx Instructions: As directed amlodipine 5 mg tablet 5 mg PO DAILY rosuvastatin 40 mg tablet 40 mg PO DAILY carvedilol 6.25 mg tablet 6.25 mg PO BID ketoconazole 2 % shampoo topical QWEEK tamsulosin 0.4 mg capsule PO DAILY Stand Alone Forms: Patient Portal/API/Survey
[2024-06-30 06:00] VITALS: BP 143/64; PULSE 79; O2SAT 93
[2024-06-30 06:30] VITALS: BP 151/69; PULSE 73; O2SAT 93
--- NOTE | 2024-06-30 06:50 | PC.NURSE ---
cleansed wound on head with saline, secured with steri strips and placed an alyvn over wound
[2024-06-30 07:00] VITALS: BP 152/67; PULSE 73; O2SAT 95
== END 2024-06-30 07:37 | disposition home or self-care (01) ==
PROVIDERS: Emergency Provider Emergency Medicine
DX: S09.8XXA Other specified injuries of head, initial encounter (principal); S01.81XA Laceration without foreign body of other part of head, initial encounter; W01.0XXA Fall on same level from slipping, tripping and stumbling without subsequent striking against object, initial encounter
CPT/HCPCS: 99281; 99283

== ENCOUNTER 2024-11-12 15:55 | Emergency (ER) | payer MEDICARE, OTHER, SELFPAY ==
[2024-11-12] VITALS (25 sets, daily range): BP systolic 120–168; BP diastolic 57–74; PULSE 66–78; RESP 16–25; TEMP 37.1; O2SAT 94–98
--- NOTE | 2024-11-12 15:55 | ED_ITS ---
HPI - Fall General Chief Complaint: Fall Stated Complaint: GLF hit head Time Seen by Provider: 11/12/24 16:23 History of Present Illness HPI Narrative: Patient brought in by ambulance for ground level fall. Patient is not on any blood thinners. Patient does have history of diabetes. Uses a cane at baseline to walk. History hyperlipidemia. Blood sugar greater than 200 but less than 300 according to EMS. Patient does remember the event. He states he was walking across his living room floor to the door to feed a chipmunk. This is common for him to do. He lost his balance and fell to his left side. He did hit his head. No loss of consciousness. Has skin injury to left knee area and left hand. It is bandaged up. Bleeding is controlled by EMS. 300 mL normal saline given by EMS as patient was orthostatic testing at the scene/home. Currently he is awake alert oriented x3. Fast exam is negative. Denies any chest pain abdominal pain or back pain. Denies any headache or head pain at this time. Patient is cooperative. Smiling. Log rolled patient to the right. No skin injury or tenderness to the back. Related Data Home Medications Medication Instructions Recorded Confirmed amlodipine 5 mg tablet 5 mg PO DAILY 02/16/24 02/16/24 bupropion HCl 150 mg 24 hr tablet, 150 mg PO DAILY 02/16/24 02/16/24 extended release carvedilol 6.25 mg tablet 6.25 mg PO BID 02/16/24 02/16/24 empagliflozin 25 mg tablet 25 mg PO DAILY 02/16/24 02/16/24 (Jardiance) flash glucose sensor (FreeStyle #1 ea 02/16/24 02/16/24 Davin 2 Sensor kit) ketoconazole 2 % shampoo topical QWEEK 02/16/24 02/16/24 nystatin 100,000 unit/gram topical 1 applic topical BID 02/16/24 02/16/24 cream rosuvastatin 40 mg tablet 40 mg PO DAILY 02/16/24 02/16/24 tamsulosin 0.4 mg capsule mg PO DAILY 02/16/24 02/16/24 Allergies Allergy/AdvReac Type Severity Reaction Status Date / Time Penicillins [PENICILLINS] Allergy Unknown Verified 02/16/24 14:52 Review of Systems Review of Systems Narrative: GENERAL: Negative chills, fatigue, malaise, fever, sweats. HEENT: Negative sinus pain, ear pain, sore throat RESPIRATORY: Negative dyspnea, cough CARDIOVASCULAR: Negative chest pain, palpitations GASTROINTESTINAL: Negative vomiting, nausea, abdominal pain : Negative dysuria, frequency, hematuria MUSCULOSKELETAL: Positive muscle or bony pain SKIN: Negative rash, skin lesions, positive skin injury NEUROLOGIC: Negative weakness, numbness ROS Unobtainable: All systems reviewed & are unremarkable except as noted in HPI and below Patient History Medical History Vision disorder Hearing decreased COPD (chronic obstructive pulmonary disease) Physical deconditioning Hyperlipidemia Type 2 diabetes mellitus with diabetic neuropathy, unspecified alcohol intake frequency: 3 or more drinks per day Exam Narrative Exam Narrative: GENERAL: in no distress, not toxic not dyspneic HEAD: Normocephalic. EYES: Pupils equal round ENT: Mucous membranes moist. NECK: Trachea midline. CARDIOVASCULAR: Regular rate and rhythm RESPIRATORY: Clear to auscultation. Breath sounds equal bilaterally. No wheezes, rales, or rhonchi. Reproducible right mid rib tenderness but no flail or crepitus. Skin exposed. GASTROINTESTINAL: Abdomen soft, mild right upper quadrant tenderness no peritoneal signs no bruising. No pain out of portion exam. EXTREMITIES: No gross deformities. 2 cm left lateral below the knee laceration base visualized no active bleeding. Left ring finger triangular skin tear/flap. Nontender MCP PIP and DP joints. Able to make a fist. And fully extend. BACK: No flank tenderness. NEURO: AOx3. Clear speech, bedside states he is at baseline. SKIN: Warm and dry PSYCH: Not anxious, is cooperative Initial Vital Signs Initial Vital Signs: Vital Signs Temperature 98.7 F 11/12/24 15:55 Pulse Rate 78 11/12/24 15:55 Respiratory Rate 16 11/12/24 15:55 Blood Pressure 141/73 H 11/12/24 15:55 Pulse Oximetry 98 11/12/24 15:55 Oxygen Delivery Method Room Air 11/12/24 15:55 Course Orders Ordered: Discontinued Medications Bacitracin (Bacitracin Oint 0.9 Gm Pckt) 1 applic TOP NOW ONE Stop: 11/12/24 18:39 Last Admin: 11/12/24 18:47 Dose: 1 applic Documented By: ANNMARIE Diphtheria/Tetanus/Acell Pertussis (Tet,Diph,Pertuss(Acell),Vac/Pf 0.5 Ml Syringe) 0.5 ml IM .ONCE ONE Stop: 11/12/24 15:56 Last Admin: 11/12/24 16:41 Dose: 0.5 ml Documented By: ANNMARIE Sodium Chloride (Normal Saline 0.9%) 1,000 mls @ 1,000 mls/hr IV BOLUS ONE Stop: 11/12/24 16:54 Last Infusion: 11/12/24 18:00 Dose: Infused Documented By: Admin: 11/12/24 16:41 Dose: 1,000 mls/hr Documented By: ANNMARIE Vital Signs Vital signs: Vital Signs - 8 hr 11/12/24 15:55 Temperature 98.7 F Pulse Rate 78 Respiratory Rate 16 Blood Pressure 141/73 H Pulse Oximetry 98 Oxygen Delivery Method Room Air MDM - Fall Lab Data 11/12/24 15:45 11/12/24 15:45 Labs: Lab Results 11/12/24 11/12/24 11/12/24 Range/Units 15:45 17:05 18:40 WBC 5.6 (4.5-11.0) X10^3/uL RBC 4.64 (4.5-5.9) X10^6/uL Hgb 11.1 L (13.5-17.5) g/dL Hct 35.4 L (41-53) % MCV 76.4 L (80-100) fL MCH 23.9 L (26-34) PG MCHC 31.3 (30-36) % RDW 17.9 H (11.6-14.8) % Plt Count 307 (150-400) X10^3/uL Neut % (Auto) 69.6 (50-75) % Lymph % (Auto) 20.4 L (25-40) % [place] % (Auto) 8.1 (3-14) % Eos % (Auto) 0.7 L (2-4) % Baso % (Auto) 1.2 (0-2) % Neut # (Auto) 3900 (8130-1073) /uL Lymph # (Auto) 1100 (4711-6431) /uL [place] # (Auto) 500 (0-900) /uL Eos # (Auto) 0 (0-450) /uL Baso # (Auto) 100 (0-100) /uL PT 11.6 (9.4-12.5) SECONDS INR 1.0 (0.9-1.3) APTT 32 (25.1-36.5) SECONDS Sodium 139 (137-145) mmol/L Potassium 4.2 (3.4-5.1) mmol/L Chloride 105 (98-107) mmol/L Carbon Dioxide 24 (22-32) mmol/L BUN 24 H (9-20) mg/dL Creatinine 1.47 H (0.66-1.25) mg/dL Estimated GFR 48 L (>60) mL/min BUN/Creatinine Ratio 16.3 (6-22) Glucose 198 H (70-99) mg/dL Calcium 8.8 (8.4-10.2) mg/dL Total Bilirubin 0.6 (0.2-1.3) mg/dL AST 66 H (17-59) IU/L ALT 30 (<50) IU/L Alkaline Phosphatase 244 H (38-126) U/L Total Creatine Kinase 43 L (55-170) U/L Troponin I < 0.012 (0.01-0.034) ng/mL Total Protein 6.8 (6.3-8.2) g/dL Albumin 3.4 L (3.5-5.0) g/dL Globulin 3.4 (1.7-4.1) g/dL Albumin/Globulin Ratio 1.0 (1.0-2.8) Urine Color Yellow Urine Appearance Clear Urine pH 5.5 (4.5-8.0) Ur Specific [place] 1.015 (1.000-1.035) Urine Protein Trace H (Negative) Urine Glucose (UA) 3+ H (Negative) g/dL Urine Ketones Negative (NEGATIVE) Urine Occult Blood Trace-intact (Negative) Urine Nitrate Negative (Negative) Urine Bilirubin Negative (NEGATIVE) Urine Urobilinogen 0.2 (0.2) E.U./dL Ur Leukocyte Esterase Negative (NEGATIVE) Urine RBC 0-1/hpf (0-5/HPF) Urine WBC 1-5/hpf (0-5/HPF) Ur Squamous Epith Cells 1-5 /hpf (0-5/HPF) Urine Bacteria Few (2-10) H (None) Ur Culture Indicated? Cult not indicated Vol Urine Centrifuged 10ml (spun) Blood Type A Positive Antibody Screen Negative Imaging Data Extremity x-ray #1: Radiologist's Impression: [address] [address] XRay Report Signed Patient: Anthony Enrique MR#: [id number] : 1945 Acct:[id number] Age/Sex: 79 / M Date of Service: 11/12/24 Loc: ED Accession Number: [id number] Procedure: XR hand LT min 3V Ordering Provider: Alek Reina MD PROCEDURE: XR HAND LT MIN 3V INDICATIONS: Fall/pain TECHNIQUE: 3 views of the hand(s) acquired. COMPARISON: None. FINDINGS: Bones: No fractures or dislocations. Osteoarthritic changes are noted throughout left hand and wrist joints. Carpal bones are normally aligned. No suspicious bony lesions. Soft tissues: No suspicious soft tissue calcifications. IMPRESSION: No gross acute left hand fracture or dislocation. 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 Dictated by: Keo Figueredo M.D. on 11/12/2024 at 16:16 Approved by: Keo Figueredo M.D. on 11/12/2024 at 16:17 CT scan - head: Radiologist's Impression: [address] [address] [address] Scan Report Signed Patient: Anthony Enrique MR#: [id number] : 1945 Acct:[id number] Age/Sex: 79 / M Date of Service: 11/12/24 Loc: ED Accession Number: [id number] Procedure: CT head/brain wo con Ordering Provider: Alek Reina MD PROCEDURE: CT HEAD/BRAIN WO CON INDICATIONS: Trauma TECHNIQUE: Noncontrast 4.5 mm thick angled axial sections acquired from the foramen magnum to the vertex, with coronal and sagittal reformats. For radiation dose reduction, the following was used: automated exposure control, adjustment of mA and/or kV according to patient size. COMPARISON: [facility], CT, CT HEAD/BRAIN WO CON, 01/25/2024, 7:16. FINDINGS: Image quality: Diagnostic. CSF spaces: Basal cisterns are patent. No extra-axial fluid collections. The ventricles are symmetric in size and shape. Brain: No intracranial bleeds or mass effect. There is cerebral volume loss, with resultant ventricular and sulcal prominence. There are periventricular and deep white matter chronic small vessel ischemic changes. There is intracranial internal carotid artery atherosclerosis. Skull and face: Calvarium and visualized facial bones appear intact, without suspicious lesions. Sinuses: Visualized sinuses and mastoids are clear. IMPRESSION: No acute intracranial pathology. No significant changes from previous study. Dictated by: Keo Figueredo M.D. on 11/12/2024 at 16:44 Approved by: Keo Figueredo M.D. on 11/12/2024 at 16:44 CT - cervical spine: Radiologist's Impression: [place] [address] CT Scan Report Signed Patient: Anthony Enrique MR#: [id number] : 1945 Acct:[id number] Age/Sex: 79 / M Date of Service: 11/12/24 Loc: ED Accession Number: [id number] Procedure: CT cervical spine wo con Ordering Provider: Alek Reina MD PROCEDURE: CT CERVICAL SPINE WO CON INDICATIONS: Trauma TECHNIQUE: Noncontrast 3 mm thick sections acquired from the skull base to the T4 level. Sagittal and coronal reformats were then constructed. For radiation dose reduction, the following was used: automated exposure control, adjustment of mA and/or kV according to patient size. COMPARISON: None. FINDINGS: Image quality: Excellent. Bones: Postfusion changes are noted at C4 through C7 levels. There is straightening of normal cervical lordosis. No fractures or dislocations. No gross hardware loosening or failure. Dorsal disc osteophyte complex formation at C6-7 level is seen causing moderate central canal stenosis. Degenerative endplate changes also seen at C2-3 and C3- 4 levels with bilateral facet hypertrophic changes. Visualized superior ribs are intact. Soft tissues: Prevertebral soft tissues are normal in thickness. No paravertebral hematomas. No apical pneumothoraces. IMPRESSION: 1. No acute cervical spine fracture or dislocation. 2. Post ACDF changes at C4 through C7 levels. Posterior fusion hardware at C4-5 level is also seen. No gross hardware loosening or failure. 3. Spondylitic changes in cervical spine as above. Dictated by: Keo Figueredo M.D. on 11/12/2024 at 16:58 Approved by: Keo Figueredo M.D. on 11/12/2024 at 17:01 CT chest abdomen pelvis: Radiologist's Impression: [address] [address] [address] Scan Report Signed Patient: Anthony Enrique MR#: [id number] : 1945 Acct:[id number] Age/Sex: 79 / M Date of Service: 11/12/24 Loc: ED Accession Number: [id number] Procedure: CT Trauma Chest Abdomen Pelvis Ordering Provider: Alek Reina MD PROCEDURE: CT TRAUMA CHEST ABDOMEN PELVIS INDICATIONS: trauma TECHNIQUE: After the administration of intravenous contrast, 5 mm thick sections acquired from the lung apices to the symphysis. 2.5 mm thick coronal and sagittal reformats were acquired. Additional 7 mm thick coronal maximum intensity projection (MIP) reformats acquired through the lungs. Optional 10-minute delayed imaging may be performed from the kidneys to the bladder. For radiation dose reduction, the following was used: automated exposure control, adjustment of mA and/or kV according to patient size. COMPARISON: None. FINDINGS: Image quality: Diagnostic. CHEST: Lower Neck: No enlarged lymph nodes. Thyroid: Thyroid gland is mildly enlarged with small subcentimeter hypodense thyroid nodules seen bilaterally measures up to 7 mm in size. Axillae: No enlarged lymph nodes. Chest Wall: No subcutaneous gas. Lungs and Pleura: Biapical scarring is seen. [id number] centrilobular emphysema. Trace amount of right pleural effusion with adjacent compressive atelectasis versus contusion in posterior aspect of right lower lobe. Mild dependent atelectasis in posterior aspect of left lower lobe is also seen. No pneumothorax. Mediastinum: No mediastinal hematomas. Heart size is mildly enlarged. No pericardial effusion. Prosthetic aortic valve is seen. 3 vessel coronary artery atherosclerotic calcifications are noted. Thoracic aorta and pulmonary arteries demonstrate normal size and enhancement. No mediastinal or hilar adenopathy. Esophagus is normal in caliber. No hiatal hernia. ABDOMEN: Liver: There is small amount of right perihepatic fluid collection. Ill- defined hypodensity involving inferior right hepatic lobe with internal linear hypodensity best seen on series 11, image 59 concerning for grade 2 hepatic laceration Gallbladder: No radiopaque gallstones or wall thickening. Biliary ducts: No biliary dilation. Pancreas: Homogenous enhancement. Spleen: Homogenous enhancement without laceration or hematoma. Adrenal Glands: Symmetric enhancement. Kidneys and Ureters: Symmetric enhancement. No hydronephrosis. No solid mass. No complex renal cystic lesion which requires follow up. Stomach and Bowel: There is no bowel obstruction. No abnormal bowel wall thickening. No abscess collection. Mild fecal stasis in the colon is seen. Sigmoid diverticulosis without CT evidence of acute diverticulitis. Peritoneum: No abnormal intraperitoneal fluid. No free air. Ventral Wall: No hernia. Likely soft tissue contusion in left flank is seen with subcutaneous fat stranding. Abdominal Nodes: No retroperitoneal or mesenteric adenopathy by size criteria. Vessels: Aorta and inferior vena cava are normal in size. PELVIS: Pelvic Organs: Unremarkable. Bladder: Normal thickness. Pelvic Nodes: No enlarged lymph nodes. Miscellaneous: No inguinal hernias are seen. Bones: Pelvic ring and hip joints appear intact. Suggestion of nondisplaced fractures involving right posterior 5th and 6th ribs. Series 5, image 69 and series 5, image 56. No acute vertebral body compression fracture. IMPRESSION: 1. Subtle nondisplaced fracture involving right posterior 5th and 6th ribs. 2. Trace right pleural effusion and suggestion of contusion versus atelectasis in posterior aspect of right lower lobe. Mild dependent atelectasis versus contusion in posterior aspect of left lower lobe. No pneumothorax. 3. Finding is concerning for grade 2 liver laceration with small amount of right perihepatic fluid and heterogeneous hypodensity in inferior aspect of right hepatic lobe. 4. No other solid organ injury is seen in abdomen or pelvis. No peritoneal free fluid or free air. 5. Soft tissue contusion in left flank. No discrete drainable fluid collection. No large soft tissue hematoma. 6. Chronic changes as above. Dictated by: Keo Figueredo M.D. on 11/12/2024 at 17:01 Approved by: Keo Figueredo M.D. on 11/12/2024 at 17:20 MDM Narrative Medical decision making narrative: Patient brought in by ambulance for ground level fall. Patient is not on any blood thinners. Patient does have history of diabetes. Uses a cane at baseline to walk. History hyperlipidemia. Blood sugar greater than 200 but less than 300 according to EMS. Patient does remember the event. He states he was walking across his living room floor to the door to feed a chipmunk. This is common for him to do. He lost his balance and fell to his left side. He did hit his head. No loss of consciousness. Has skin injury to left knee area and left hand. It is bandaged up. Bleeding is controlled by EMS. 300 mL normal saline given by EMS as patient was orthostatic testing at the scene/home. Currently he is awake alert oriented x3. Fast exam is negative. Denies any chest pain abdominal pain or back pain. Denies any headache or head pain at this time. Patient is cooperative. Smiling. Log rolled patient to the right. No skin injury or tenderness to the back. After history and exam, CBC CMP troponin CT head cervical spine chest abdomen pelvis urinalysis MDM Medical records reviewed: No recent visit for this complaint Differential considered: Includes but not limited to dehydration UTI sepsis hand fracture hand laceration leg laceration intracranial bleed concussion skull fracture Lab Test results independently reviewed as above. Pertinent findings: WBC 5.6 hemoglobin 11.1 INR 1.0 sodium 139 potassium 4.2 BUN 24 creatinine 1.47 GFR 48 troponin less than 0.012 Independently reviewed EKG normal sinus rhythm rate 76 right bundle-branch block Imaging studies independently reviewed: X-ray right hand no acute finding, CT head and cervical spine no acute finding. CT chest abdomen pelvis grade 2 liver laceration, rib fractures and following right 5th and 6th ribs Consultations: 5:45 p.m.. I spoke with our general surgeon, Dr. Adams, he instructs and recommends patient to be transferred to [facility]. 6:00 p.m.. Spoke with [facility] ER attending, dr asif Re-evaluations: 6:15 p.m.. Updated patient and results. They do understand need for higher level of care for trauma liver laceration patient is pain-free at this time. Vital signs are stable. Discussion: Appropriate for transfer higher level of care for liver laceration. Patient has been stable. Not requiring pressors. Not requiring transfusions. Diagnosis: Liver laceration leg laceration finger laceration Discharge Plan Departure Patient Disposition: [facility] Clinical Impression: Liver laceration, closed Qualifiers: Encounter type: initial encounter Qualified Code(s): S36.113A - Laceration of liver, unspecified degree, initial encounter Laceration of leg Qualifiers: Encounter type: initial encounter Laterality: left Qualified Code(s): S81.812A - Laceration without foreign body, left lower leg, initial encounter Finger laceration Qualifiers: Encounter type: initial encounter Finger: ring finger Damage to nail status: w ithout damage Foreign body presence: without foreign body Laterality: left Q ualified Code(s): S61.215A - Laceration without foreign body of left ring finger without damage to nail, initial encounter Prescriptions: No Action bupropion HCl 150 mg tablet extended release 24 hr 150 mg PO DAILY Jardiance 25 mg tablet 25 mg PO DAILY nystatin 100,000 unit/gram cream 1 applic topical BID (DME) FreeStyle Davin 2 Sensor Kit See Rx Instructions .ROUTE .MEDSUPPLY Qty: 1 Patient Comments: apply 1 SENSOR to back OF UPPER ARM REMOVE AND REPLACE every 14 d... (REFER TO PRESCRIPTION NOTES). Rx Instructions: As directed amlodipine 5 mg tablet 5 mg PO DAILY rosuvastatin 40 mg tablet 40 mg PO DAILY carvedilol 6.25 mg tablet 6.25 mg PO BID ketoconazole 2 % shampoo topical QWEEK tamsulosin 0.4 mg capsule PO DAILY
[2024-11-12 16:07] LABS: Add Manual Diff / Slide Review NO; Basophils Absolute Auto 100 /uL (0-100); Basophils Percent Auto 1.2 % (0-2); Eosinophils Absolute Auto 0 /uL (0-450); Eosinophils Percent Auto 0.7 % (2-4); Hematocrit 35.4 % (41-53); Hemoglobin 11.1 g/dL (13.5-17.5); Lymphocytes Absolute Auto 1100 /uL (1100-4500); Lymphocytes Percent Auto 20.4 % (25-40); Mean Corpuscular HGB Conc 31.3 % (30-36); Mean Corpuscular Hemoglobin 23.9 PG (26-34); Mean Corpuscular Volume 76.4 fL (80-100); Monocytes Absolute Auto 500 /uL (0-900); Monocytes Percent Auto 8.1 % (3-14); Neutrophils Absolute Auto 3900 /uL (1500-7000); Neutrophils Percent Auto 69.6 % (50-75); Platelet Count 307 X10^3/uL (150-400); Red Blood Cell Count 4.64 X10^6/uL (4.5-5.9); Red Cell Distribution Width 17.9 % (11.6-14.8); White Blood Cell Count 5.6 X10^3/uL (4.5-11.0)
[2024-11-12 16:08] LABS: Prothrombin Time 11.6 SECONDS (9.4-12.5)
[2024-11-12 16:10] LABS: PTT Partial Thromboplastin Tim 32 SECONDS (25.1-36.5)
[2024-11-12 16:14] LABS: Creatine Kinase 43 U/L (55-170)
[2024-11-12 16:16] LABS: Alanine Aminotransferase 30 IU/L (<50); Albumin 3.4 g/dL (3.5-5.0); Alkaline Phosphatase 244 U/L (38-126); Aspartate Aminotransferase 66 IU/L (17-59); BUN Creatinine Ratio 16.3 (6-22); Bilirubin Total 0.6 mg/dL (0.2-1.3); Blood Urea Nitrogen 24 mg/dL (9-20); Calcium 8.8 mg/dL (8.4-10.2); Carbon Dioxide 24 mmol/L (22-32); Chloride 105 mmol/L (98-107); Estimated Glomerular Filt Rate 48 mL/min (>60); Globulin 3.4 g/dL (1.7-4.1); Glucose 198 mg/dL (70-99); HEMOLYSIS < 15 (0-50); Potassium 4.2 mmol/L (3.4-5.1); Sodium 139 mmol/L (137-145); Total Protein 6.8 g/dL (6.3-8.2)
[2024-11-12 16:27] LABS: Troponin I < 0.012 ng/mL (0.01-0.034)
--- NOTE | 2024-11-12 16:27 | DI.CT.S_ITS ---
PROCEDURE: CT TRAUMA CHEST ABDOMEN PELVIS INDICATIONS: trauma TECHNIQUE: After the administration of intravenous contrast, 5 mm thick sections acquired from the lung apices to the symphysis. 2.5 mm thick coronal and sagittal reformats were acquired. Additional 7 mm thick coronal maximum intensity projection (MIP) reformats acquired through the lungs. Optional 10-minute delayed imaging may be performed from the kidneys to the bladder. For radiation dose reduction, the following was used: automated exposure control, adjustment of mA and/or kV according to patient size. COMPARISON: None. FINDINGS: Image quality: Diagnostic. CHEST: Lower Neck: No enlarged lymph nodes. Thyroid: Thyroid gland is mildly enlarged with small subcentimeter hypodense thyroid nodules seen bilaterally measures up to 7 mm in size. Axillae: No enlarged lymph nodes. Chest Wall: No subcutaneous gas. Lungs and Pleura: Biapical scarring is seen. [id number] centrilobular emphysema. Trace amount of right pleural effusion with adjacent compressive atelectasis versus contusion in posterior aspect of right lower lobe. Mild dependent atelectasis in posterior aspect of left lower lobe is also seen. No pneumothorax. Mediastinum: No mediastinal hematomas. Heart size is mildly enlarged. No pericardial effusion. Prosthetic aortic valve is seen. 3 vessel coronary artery atherosclerotic calcifications are noted. Thoracic aorta and pulmonary arteries demonstrate normal size and enhancement. No mediastinal or hilar adenopathy. Esophagus is normal in caliber. No hiatal hernia. ABDOMEN: Liver: There is small amount of right perihepatic fluid collection. Ill-defined hypodensity involving inferior right hepatic lobe with internal linear hypodensity best seen on series 11, image 59 concerning for grade 2 hepatic laceration Gallbladder: No radiopaque gallstones or wall thickening. Biliary ducts: No biliary dilation. Pancreas: Homogenous enhancement. Spleen: Homogenous enhancement without laceration or hematoma. Adrenal Glands: Symmetric enhancement. Kidneys and Ureters: Symmetric enhancement. No hydronephrosis. No solid mass. No complex renal cystic lesion which requires follow up. Stomach and Bowel: There is no bowel obstruction. No abnormal bowel wall thickening. No abscess collection. Mild fecal stasis in the colon is seen. Sigmoid diverticulosis without CT evidence of acute diverticulitis. Peritoneum: No abnormal intraperitoneal fluid. No free air. Ventral Wall: No hernia. Likely soft tissue contusion in left flank is seen with subcutaneous fat stranding. Abdominal Nodes: No retroperitoneal or mesenteric adenopathy by size criteria. Vessels: Aorta and inferior vena cava are normal in size. PELVIS: Pelvic Organs: Unremarkable. Bladder: Normal thickness. Pelvic Nodes: No enlarged lymph nodes. Miscellaneous: No inguinal hernias are seen. Bones: Pelvic ring and hip joints appear intact. Suggestion of nondisplaced fractures involving right posterior 5th and 6th ribs. Series 5, image 69 and series 5, image 56. No acute vertebral body compression fracture. IMPRESSION: 1. Subtle nondisplaced fracture involving right posterior 5th and 6th ribs. 2. Trace right pleural effusion and suggestion of contusion versus atelectasis in posterior aspect of right lower lobe. Mild dependent atelectasis versus contusion in posterior aspect of left lower lobe. No pneumothorax. 3. Finding is concerning for grade 2 liver laceration with small amount of right perihepatic fluid and heterogeneous hypodensity in inferior aspect of right hepatic lobe. 4. No other solid organ injury is seen in abdomen or pelvis. No peritoneal free fluid or free air. 5. Soft tissue contusion in left flank. No discrete drainable fluid collection. No large soft tissue hematoma. 6. Chronic changes as above. Dictated by: Keo Figueredo M.D. on 11/12/2024 at 17:01 Approved by: Keo Figueredo M.D. on 11/12/2024 at 17:20
--- NOTE | 2024-11-12 16:27 | PC.NURSE ---
, Caitie, arrives and is at bedside. States she was out grocery shopping and when she returned she found her on the floor. He was alert and told her he was going to feed the chipmunk and got tangled in his cane and fell. states he was unable to get up and so they called EMS. Confirmed pt is not on thinners with . also reports, memory problems at baseline. Provider Latosha made aware.
--- NOTE | 2024-11-12 16:31 | EKG_ITS ---
[address] [address] Test Date: 2024-11-12 Pat Name: Anthony Enrique Department: Room: Gender: Male [employer] Silverer: BRANDY : 1945 Requested By: Order Number: [id number] Reading MD: Kishore Marr MD Measurements Intervals [place] Rate: 76 P: 13 [place]: 158 QRS: -54 QRSD: 152 T: 37 QT: 432 QTc: 486 Interpretive Statements Normal sinus rhythm Right bundle branch block Left anterior fascicular block Bifascicular block NO SIGNIFICANT CHANGE FROM PRIOR TRACING Electronically Signed On 11-12-2024 16:52:04 PDT by Kishore Marr MD
[2024-11-12] MEDS: SODIUM CHLORIDE 0.9% 1,000 ML 1000 ML IV (16:41)
[2024-11-12] MEDS: TET,DIPH,PERTUSS(ACELL),VAC/PF 0.5 ML SYRINGE IM (16:41)
[2024-11-12 17:18] LABS: Appearance Urine UA CLEAR; Bilirubin Urine UA NEGATIVE (NEGATIVE); Color Urine UA YELLOW; Glucose Urine UA 3+ g/dL (Negative); Ketones Urine UA NEGATIVE (NEGATIVE); Leukocyte Esterase Urine UA NEGATIVE (NEGATIVE); Nitrite Urine UA NEGATIVE (Negative); Occult Blood Urine UA TRACE-INTACT (Negative); Protein Urine UA TRACE (Negative); Specific Gravity Urine UA 1.015 (1.000-1.035); Urobilinogen Urine UA 0.2 E.U./dL (0.2); pH Urine UA 5.5 (4.5-8.0)
[2024-11-12 17:24] LABS: Bacteria Urine Few (2-10); Culture Indicated Urine Cult Not Indicated; RBC Urine 0-1/HPF (0-5/HPF); Squamous Epithelial Cell Urine 1-5 /HPF (0-5/HPF); Urine Volume 10mL (spun); WBC Urine 1-5/HPF (0-5/HPF)
[2024-11-12] MEDS: BACITRACIN OINT 0.9 GM PCKT 1 APPLIC TOP (18:47)
--- NOTE | 2024-11-12 20:11 | PC.NURSE ---
Report given/care transferred to [facility] transport team
== END 2024-11-12 20:25 | disposition short-term general hospital (02) ==
PROVIDERS: Emergency Provider Emergency Medicine
DX: S36.115A Moderate laceration of liver, initial encounter (principal); S22.41XA Multiple fractures of ribs, right side, initial encounter for closed fracture; S81.812A Laceration without foreign body, left lower leg, initial encounter; S61.215A Laceration without foreign body of left ring finger without damage to nail, initial encounter; I45.10 Unspecified right bundle-branch block; W01.0XXA Fall on same level from slipping, tripping and stumbling without subsequent striking against object, initial encounter; Z23 Encounter for immunization
CPT/HCPCS: 70450; 71275; 72125; 73130; 74177; 80053; 81001; 82550; 84484; 85025; 85610; 85730; 86850; 86900; 86901; 90471; 93005; 93010; 96360; 99284; 99285; 99291; 99292; 90715; Q9967

== ENCOUNTER 2024-11-21 22:58 | Emergency (ER) | payer MEDICARE, OTHER, SELFPAY ==
[2024-11-21 23:10] VITALS: BP 136/70; PULSE 96; RESP 21; TEMP 36.3; O2SAT 97; BMI 31.7
[2024-11-22 00:09] VITALS: PULSE 86; RESP 23; O2SAT 94
[2024-11-22 00:30] VITALS: BP 149/70; PULSE 85; RESP 23; O2SAT 94
[2024-11-22 01:00] VITALS: BP 161/69; PULSE 85; RESP 23; O2SAT 97
--- NOTE | 2024-11-22 01:09 | ED.GIBLEED ---
HPI - GI Bleed General Chief complaint: GI Bleed Stated complaint: blood in urine Time Seen by Provider: 11/22/24 00:36 Source: patient and family Mode of arrival: Ambulatory History of Present Illness HPI Narrative: 79-year-old male past medical history of hypertension, diabetes, hyperlipidemia, COPD not requiring supplemental oxygen at baseline is brought in with for evaluation of lower GI bleeding, she states that she was changing him and noticed some small amounts of bright red blood, she states that he is not on any blood thinners, however she states that several days ago he did have a mechanical trip and fall and does have rib fractures and liver laceration, however patient is denying any abdominal pain, he denies any other symptoms at this time. To note patient does state that he has been having some diarrhea over the past few days. Related Data Home Medications Medication Instructions Recorded Confirmed amlodipine 5 mg tablet 5 mg PO DAILY 02/16/24 02/16/24 bupropion HCl 150 mg 24 hr tablet, 150 mg PO DAILY 02/16/24 02/16/24 extended release carvedilol 6.25 mg tablet 6.25 mg PO BID 02/16/24 02/16/24 empagliflozin 25 mg tablet 25 mg PO DAILY 02/16/24 02/16/24 (Jardiance) flash glucose sensor (FreeStyle #1 ea 02/16/24 02/16/24 Davin 2 Sensor kit) ketoconazole 2 % shampoo topical QWEEK 02/16/24 02/16/24 nystatin 100,000 unit/gram topical 1 applic topical BID 02/16/24 02/16/24 cream rosuvastatin 40 mg tablet 40 mg PO DAILY 02/16/24 02/16/24 tamsulosin 0.4 mg capsule mg PO DAILY 02/16/24 02/16/24 Previous Rx's Medication Instructions Recorded clotrimazole 1 % topical ointment 1 applic topical BID 2 weeks #56.7 11/22/24 grams Allergies Allergy/AdvReac Type Severity Reaction Status Date / Time Penicillins [PENICILLINS] Allergy Unknown Verified 02/16/24 14:52 Review of Systems Review of Systems Narrative: General: Denies fever, chills, weight loss HEENT: Denies headache, eye drainage, eye irritation, head trauma, sore throat, voice change Cardiovascular: Denies any chest pain, palpitations, tachycardia Respiratory: Denies any shortness of breath, cough, wheeze, stridor GI/: Positive lower GI bleed, Denies any abdominal pain, nausea, vomiting, diarrhea, bright red blood per rectum, melanotic stools, urinary frequency, urinary retention, dysuria, hematuria MSK: Denies any joint pain, muscle pains, swelling Skin: Denies any rashes, lesions, discoloration Neuro: Denies any headache, lightheadedness, dizziness, fainting, weakness Psych: Denies SI/HI Patient History Medical History Vision disorder Hearing decreased COPD (chronic obstructive pulmonary disease) Physical deconditioning Hyperlipidemia Type 2 diabetes mellitus with diabetic neuropathy, unspecified alcohol intake frequency: 3 or more drinks per day Exam Narrative Exam Narrative: General: Cooperative, well-developed, not in acute distress HEENT: Normocephalic, atraumatic, PERRLA, normal sclera, eyelids normal Neck: Active full range of motion, atraumatic Chest: Normal to inspection, negative crepitus, no overlying erythema ecchymosis Respiratory: Normal respiratory effort, not in acute respiratory distress, clear to auscultation bilaterally negative cough, wheeze, tachypnea, rhonchi, rales Cardiology: Regular rate rhythm negative gallop, murmur, rubs GI/: No tenderness to palpation, soft, non rigid, normal to inspection, exam: Patient uncircumcised, finding consistent with balanitis, however I am able to retract the foreskin of the penis and visualize the opening of the meatus, there is no gross deformity or blood, Hemoccult negative, no signs of anal fissures, no palpable internal or external hemorrhoids MSK: Full active range of motion in all 4 extremities, atraumatic, no tenderness to palpation of any bony prominences Skin: No rashes or lesions noted Neuro: Alert awake oriented x3, moves all 4 extremities spontaneously, cranial nerves intact, able to answer all questions appropriately follows commands appropriately Psych: Cooperative, negative suicidal or homicidal ideations Initial Vital Signs Initial Vital Signs: Vital Signs Temperature 97.4 F L 11/21/24 23:10 Pulse Rate 96 H 11/21/24 23:10 Respiratory Rate 21 11/21/24 23:10 Blood Pressure 136/70 05/15/25 23:10 Pulse Oximetry 97 11/21/24 23:10 Oxygen Delivery Method Room Air 11/21/24 23:10 Course Orders Ordered: ED Orders 11/22/24 01:12 Type and Screen Stat 11/22/24 01:24 BMP [Basic Metabolic Panel] Stat CBC Auto Diff [Complete Blood Count AUTO DIFF] Stat PT [Prothrombin Time INR] Stat PTT Partial Thromboplastin Jr Stat Discontinued Medications Clotrimazole (Clotrimazole 1% Crm 30 Gm) 1 applic TOP NOW ONE Stop: 11/22/24 01:13 Last Admin: 11/22/24 01:37 Dose: Not Given Documented By: LS Vital Signs Vital signs: Vital Signs - 8 hr 11/21/24 23:10 11/22/24 00:09 11/22/24 00:30 Temperature 97.4 F L Pulse Rate 96 H 86 85 Respiratory Rate 21 23 23 Blood Pressure 136/70 Pulse Oximetry 97 94 94 Oxygen Delivery Method Room Air Room Air Room Air 11/22/24 00:30 11/22/24 01:00 11/22/24 01:00 Temperature Pulse Rate 85 Respiratory Rate 23 Blood Pressure 149/70 H 161/69 H Pulse Oximetry 97 Oxygen Delivery Method Room Air MDM - GI Bleed Differential Diagnosis Differential diagnosis: Likely hemorrhoids, Lower gastrointestinal hemorrhage, hematochezia, melena, anal fissure and other (Anemia, balanitis,) Lab Data 11/22/24 01:24 11/22/24 01:24 Labs: Lab Results 11/22/24 Range/Units 01:24 WBC 5.9 (4.5-11.0) X10^3/uL RBC 4.40 L (4.5-5.9) X10^6/uL Hgb 10.7 L (13.5-17.5) g/dL Hct 33.8 L (41-53) % MCV 76.9 L (80-100) fL MCH 24.3 L (26-34) PG MCHC 31.6 (30-36) % RDW 18.8 H (11.6-14.8) % Plt Count 261 (150-400) X10^3/uL Neut % (Auto) 72.8 (50-75) % Lymph % (Auto) 16.8 L (25-40) % [place] % (Auto) 6.9 (3-14) % Eos % (Auto) 0.8 L (2-4) % Baso % (Auto) 2.7 H (0-2) % Neut # (Auto) 4300 (8502-6075) /uL Lymph # (Auto) 1000 L (1136-1611) /uL [place] # (Auto) 400 (0-900) /uL Eos # (Auto) 0 (0-450) /uL Baso # (Auto) 200 H (0-100) /uL PT 12.4 (9.4-12.5) SECONDS INR 1.1 (0.9-1.3) APTT 29 (25.1-36.5) SECONDS Sodium 138 (137-145) mmol/L Potassium 3.9 (3.4-5.1) mmol/L Chloride 105 (98-107) mmol/L Carbon Dioxide 25 (22-32) mmol/L BUN 18 (9-20) mg/dL Creatinine 1.70 H (0.66-1.25) mg/dL Estimated GFR 40 L (>60) mL/min BUN/Creatinine Ratio 10.6 (6-22) Glucose 179 H (70-99) mg/dL Calcium 8.9 (8.4-10.2) mg/dL MDM Narrative Medical decision making narrative: 79-year-old male past medical history of COPD not requiring supplemental oxygen at baseline, hyperlipidemia, diabetes, hypertension, comes into the ED for unknown lower GI bleed, patient states he has no pain or discomfort, however he states that he was being changed by his and noticed some bright red blood in the diaper, he is not on any blood thinners, states that he had a fall several weeks ago and has known rib fractures, on exam Hemoccult negative, he does state that he has been having diarrhea, exam consistent with balanitis, patient was prescribed clotrimazole for home, lab work was performed patient with hemoglobin 10.7, this is near patient's baseline, wanting to the he was started on iron supplement after he had his fall, she states that this is better than when he was discharged previously. Patient's vital signs stable, they were given strict return precautions and instructed follow up with primary care urology and GI in an outpatient setting they were given strict return precautions they verbalized understanding of this and agrees to being discharged home with outpatient follow up Discharge Plan Departure Patient Disposition: Home Clinical Impression: Balanitis Instructions: DI for Balanitis Activity Restrictions/Additional Instructions: Please follow up with Urology, Gastroenterology and primary care in outpatient setting Please read the discharge instructions sheet carefully and bring all papers to all doctor follow-up visits, as it may contain information that your doctor may want to see. Disease processes change and evolve, if your symptoms worsen or if you develop any new symptoms that are concerning to you please return for evaluation. Your evaluation today does not show any evidence of any life-threatening/serious illnesses requiring admission to the hospital or surgery. Please follow-up with your doctor for re-evaluation in approximately 1 day. Seek immediate medical attention for any worrisome symptoms. *If you do not have a primary care provider please contact the [facility] Resource line at [phone]. They will ask some questions about your medical history and help get you set up with a doctor in the community. Prescriptions: New clotrimazole 1 % ointment 1 applic topical BID 14 Days Qty: 56.7 0RF Rx Instructions: Continue to use until resolution of symptoms No Action bupropion HCl 150 mg tablet extended release 24 hr 150 mg PO DAILY Jardiance 25 mg tablet 25 mg PO DAILY nystatin 100,000 unit/gram cream 1 applic topical BID (DME) FreeStyle Davin 2 Sensor Kit See Rx Instructions .ROUTE .MEDSUPPLY Qty: 1 Patient Comments: apply 1 SENSOR to back OF UPPER ARM REMOVE AND REPLACE every 14 d... (REFER TO PRESCRIPTION NOTES). Rx Instructions: As directed amlodipine 5 mg tablet 5 mg PO DAILY rosuvastatin 40 mg tablet 40 mg PO DAILY carvedilol 6.25 mg tablet 6.25 mg PO BID ketoconazole 2 % shampoo topical QWEEK tamsulosin 0.4 mg capsule PO DAILY Referrals: Solitario Tolliver DO [Physician] - (Urology follow up) Guido Walton MD [Non-Staff] - (GI follow up) Ari,MD Heber [Primary Care Provider] - Stand Alone Forms: Patient Portal/API/Survey
[2024-11-22 01:31] VITALS: PULSE 79; RESP 24; O2SAT 95
[2024-11-22 01:32] VITALS: BP 141/67; PULSE 80; RESP 24; O2SAT 97
[2024-11-22 01:33] LABS: Add Manual Diff / Slide Review NO; Basophils Absolute Auto 200 /uL (0-100); Basophils Percent Auto 2.7 % (0-2); Eosinophils Absolute Auto 0 /uL (0-450); Eosinophils Percent Auto 0.8 % (2-4); Hematocrit 33.8 % (41-53); Hemoglobin 10.7 g/dL (13.5-17.5); Lymphocytes Absolute Auto 1000 /uL (1100-4500); Lymphocytes Percent Auto 16.8 % (25-40); Mean Corpuscular HGB Conc 31.6 % (30-36); Mean Corpuscular Hemoglobin 24.3 PG (26-34); Mean Corpuscular Volume 76.9 fL (80-100); Monocytes Absolute Auto 400 /uL (0-900); Monocytes Percent Auto 6.9 % (3-14); Neutrophils Absolute Auto 4300 /uL (1500-7000); Neutrophils Percent Auto 72.8 % (50-75); Platelet Count 261 X10^3/uL (150-400); Red Cell Distribution Width 18.8 % (11.6-14.8); White Blood Cell Count 5.9 X10^3/uL (4.5-11.0)
[2024-11-22 01:37] LABS: INR 1.1 (0.9-1.3); Prothrombin Time 12.4 SECONDS (9.4-12.5)
[2024-11-22 01:40] LABS: PTT Partial Thromboplastin Tim 29 SECONDS (25.1-36.5)
[2024-11-22 01:41] LABS: BUN Creatinine Ratio 10.6 (6-22); Blood Urea Nitrogen 18 mg/dL (9-20); Calcium 8.9 mg/dL (8.4-10.2); Carbon Dioxide 25 mmol/L (22-32); Chloride 105 mmol/L (98-107); Estimated Glomerular Filt Rate 40 mL/min (>60); Glucose 179 mg/dL (70-99); HEMOLYSIS 34 (0-50); Potassium 3.9 mmol/L (3.4-5.1); Sodium 138 mmol/L (137-145)
[2024-11-22 02:00] VITALS: BP 147/70; PULSE 82; RESP 23; O2SAT 95
== END 2024-11-22 02:35 | disposition home or self-care (01) ==
PROVIDERS: Emergency Provider Student in an Organized Health Care Education/Training Program
DX: N48.1 Balanitis (principal)
CPT/HCPCS: 36415; 80048; 85025; 85610; 85730; 99283

== ENCOUNTER 2025-02-10 15:41 | Emergency (ER) | payer MEDICARE, OTHER, SELFPAY ==
[2025-02-10] VITALS (18 sets, daily range): BP systolic 121–146; BP diastolic 57–74; PULSE 65–77; RESP 16–28; TEMP 36.2; O2SAT 95–99; BMI 30.1
--- NOTE | 2025-02-10 16:39 | ED_ITS ---
HPI - Weakness <Kishore Hernandez, DO - Last Filed: 02/11/25 17:35> General Chief complaint: Weakness Stated complaint: Weakness Time Seen by Provider: 02/10/25 15:42 Source: EMS Mode of arrival: EMS History of Present Illness HPI Narrative: 80-year-old gentleman history,hypertension, diabetes, dyslipidemia, COPD not on home O2 presents with generalized weakness difficulty ambulating increased leg swelling gradually over the last couple of weeks worse over the past few days brought in via EMS for further evaluation. Of note use previously on furosemide but his took him off of the medicines as the leg swelling did not come down and she felt it was not helping him. Patient denies active chest pain, worsening cough, nausea, vomiting, diarrhea, constipation, diaphoresis, or back pain. Pt's reports stating she is unable to care for him and help as he has gotten weaker and unable to ambulate safely without assistance. Other than what is stated 14 point review of system is negative. Related Data Home Medications ?Medication ?Instructions ?Recorded ?Confirmed amlodipine 5 mg tablet 5 mg PO DAILY 02/16/2402/11 bupropion HCl 150 mg 24 hr tablet, 150 mg PO DAILY 04/0202/11/25 extended release carvedilol 6.25 mg tablet 6.25 mg PO BID 02/16/2412/01 empagliflozin 25 mg tablet 25 mg PO DAILY 02/16/2412/01 (Jardiance) flash glucose sensor (FreeStyle #1 ea 02/16/24 4 Davin 2 Sensor kit) ketoconazole 2 % shampoo topical QWEEK 02/16/2402/15 nystatin 100,000 unit/gram topical 1 applic topical BI D 02/16/24 02/11/25 cream rosuvastatin 40 mg tablet 40 mg PO DAILY 02/16/2412/01 tamsulosin 0.4 mg capsule 0.4 mg PO DAILY 02/16/2412/01 clotrimazole 1 % topical cream applic topical BID 12/01 metoprolol succinate 50 mg 50 mg PO DAILY 02/11/2512/01 tablet,extended release 24 hr torsemide 20 mg tablet 20 mg PO DAILY 02/11/2512/01 Allergies Allergy/AdvReac Type Severity Reaction Status Date / Time Penicillins (PENICILLINS) Allergy Unknown Verified 02/16/24 14:52 Review of Systems <Kishore Hernandez DO - Last Filed: 02/11/25 17:35> Review of Systems ROS Unobtainable: All systems reviewed & are unremarkable except as noted in HPI and below Patient History <Kishore Hernandez DO - Last Filed: 02/11/25 17:35> Medical History (Updated 02/11/25 @ 16:17 by Gerry Arrieta MD) Hypertension Vision disorder Hearing decreased COPD (chronic obstructive pulmonary disease) Physical deconditioning Hyperlipidemia Type 2 diabetes mellitus with diabetic neuropathy, unspecified Social History household members: spouse alcohol intake frequency: 3 or more drinks per day Exam <Kishore Hernandez DO - Last Filed: 02/11/25 17:35> Narrative Exam Narrative: GENERAL: [80] year old patient appears stated age. Well-developed patient, in mild distress. HEAD: Atraumatic. Normocephalic. EYES: Pupils equal round and reactive. Extraocular motions intact. No scleral icterus. No injection or drainage. ENT: Nose without bleeding, purulent drainage. Throat without erythema, tonsillar hypertrophy or exudate. Airway patent. NECK: Trachea midline. Non tender CARDIOVASCULAR: Regular rate and rhythm without murmurs, gallops, or rubs. RESPIRATORY: Decreased breath sounds with faint crackles at the bases GASTROINTESTINAL: Abdomen soft, non-tender, nondistended. EXTREMITIES: +2 pretibial and pedal edema bilateral BACK: Nontender without deformity or crepitance. No flank tenderness. NEURO: AOx3. SKIN: No rash or erythema of visible areas Initial Vital Signs Initial Vital Signs: Vital Signs Temperature 97.1 F L 02/10/25 15:55 Pulse Rate 68 02/10/25 15:55 Respiratory Rate 16 02/10/25 15:55 Blood Pressure 133/62 02/10/25 15:55 Pulse Oximetry 97 02/10/25 15:55 Oxygen Delivery Method Room Air 02/10/25 15:55 <Ricco Ruyb MD - Last Filed: 02/11/25 18:09> Initial Vital Signs Initial Vital Signs: Vital Signs Temperature 97.1 F L 02/10/25 15:55 Pulse Rate 68 02/10/25 15:55 Respiratory Rate 16 02/10/25 15:55 Blood Pressure 133/62 02/10/25 15:55 Pulse Oximetry 97 02/10/25 15:55 Oxygen Delivery Method Room Air 02/10/25 15:55 <Gerry Arrieta MD - Last Filed: 02/11/25 16:18> Initial Vital Signs Initial Vital Signs: Vital Signs Temperature 97.1 F L 02/10/25 15:55 Pulse Rate 68 02/10/25 15:55 Respiratory Rate 16 02/10/25 15:55 Blood Pressure 133/62 02/10/25 15:55 Pulse Oximetry 97 02/10/25 15:55 Oxygen Delivery Method Room Air 02/10/25 15:55 Course <Kishore Hernandez DO - Last Filed: 02/11/25 17:35> Orders Ordered: Discontinued Medications Atorvastatin Calcium (Atorvastatin 20 Mg Tablet) 80 mg PO DAILY [facility] Bupropion HCl (Bupropion Xl 150 Mg Tab) 150 mg PO DAILY [facility] Furosemide (Furosemide 40 Mg/4 Ml Vial) 40 mg IV NOW ONE Stop: 02/10/25 17:53 Last Admin: 02/10/25 18:44 Dose: 40 mg Documented By: JIL Metoprolol Succinate (Metoprolol Er 50 Mg Tablet) 50 mg PO DAILY [facility] Empagliflozin [ Jardiance] 25 Mg Tablet 25 mg PO DAILY [facility] Nystatin (Nystatin Cream 30 Gm) 1 applic TOP BID [facility] Tamsulosin HCl (Tamsulosin 0.4 Mg Capsule) 0.4 mg PO DAILY [facility] Torsemide (Torsemide 10 Mg Tablet) 20 mg PO DAILY [facility] Vital Signs Vital signs: Vital Signs - 8 hr 02/11/25 10:30 02/11/25 11:00 02/11/25 11:30 Temperature Pulse Rate 70 64 66 Respiratory Rate 20 24 28 H Blood Pressure Pulse Oximetry 98 97 98 Oxygen Delivery Method 02/11/25 12:00 02/11/25 12:00 02/11/25 12:30 Temperature Pulse Rate 71 73 Respiratory Rate 27 H 27 H Blood Pressure 141/65 H Pulse Oximetry 98 97 Oxygen Delivery Method 02/11/25 13:00 02/11/25 13:30 02/11/25 14:00 Temperature Pulse Rate 72 68 69 Respiratory Rate 25 H 20 24 Blood Pressure Pulse Oximetry 97 97 97 Oxygen Delivery Method Room Air 02/11/25 14:30 02/11/25 14:34 02/11/25 14:34 Temperature Pulse Rate 73 72 Respiratory Rate 23 24 Blood Pressure 124/60 Pulse Oximetry 97 Oxygen Delivery Method 02/11/25 15:00 02/11/25 16:45 Temperature 97.6 F Pulse Rate 72 Respiratory Rate 29 H Blood Pressure Pulse Oximetry Oxygen Delivery Method <Ricco Ruby MD - Last Filed: 02/11/25 18:09> Orders Ordered: Discontinued Medications Atorvastatin Calcium (Atorvastatin 20 Mg Tablet) 80 mg PO DAILY [facility] Bupropion HCl (Bupropion Xl 150 Mg Tab) 150 mg PO DAILY [facility] Furosemide (Furosemide 40 Mg/4 Ml Vial) 40 mg IV NOW ONE Stop: 02/10/25 17:53 Last Admin: 02/10/25 18:44 Dose: 40 mg Documented By: JIL Metoprolol Succinate (Metoprolol Er 50 Mg Tablet) 50 mg PO DAILY [facility] Empagliflozin [ Jardiance] 25 Mg Tablet 25 mg PO DAILY [facility] Nystatin (Nystatin Cream 30 Gm) 1 applic TOP BID [facility] Tamsulosin HCl (Tamsulosin 0.4 Mg Capsule) 0.4 mg PO DAILY [facility] Torsemide (Torsemide 10 Mg Tablet) 20 mg PO DAILY [facility] Vital Signs Vital signs: Vital Signs - 8 hr 02/11/25 10:30 02/11/25 11:00 02/11/25 11:30 Temperature Pulse Rate 70 64 66 Respiratory Rate 20 24 28 H Blood Pressure Pulse Oximetry 98 97 98 Oxygen Delivery Method 02/11/25 12:00 02/11/25 12:00 02/11/25 12:30 Temperature Pulse Rate 71 73 Respiratory Rate 27 H 27 H Blood Pressure 141/65 H Pulse Oximetry 98 97 Oxygen Delivery Method 02/11/25 13:00 02/11/25 13:30 02/11/25 14:00 Temperature Pulse Rate 72 68 69 Respiratory Rate 25 H 20 24 Blood Pressure Pulse Oximetry 97 97 97 Oxygen Delivery Method Room Air 02/11/25 14:30 02/11/25 14:34 02/11/25 14:34 Temperature Pulse Rate 73 72 Respiratory Rate 23 24 Blood Pressure 124/60 Pulse Oximetry 97 Oxygen Delivery Method 02/11/25 15:00 02/11/25 16:45 Temperature 97.6 F Pulse Rate 72 Respiratory Rate 29 H Blood Pressure Pulse Oximetry Oxygen Delivery Method <Gerry Arrieta MD - Last Filed: 02/11/25 16:18> Orders Ordered: Discontinued Medications Atorvastatin Calcium (Atorvastatin 20 Mg Tablet) 80 mg PO DAILY [facility] Bupropion HCl (Bupropion Xl 150 Mg Tab) 150 mg PO DAILY [facility] Furosemide (Furosemide 40 Mg/4 Ml Vial) 40 mg IV NOW ONE Stop: 02/10/25 17:53 Last Admin: 02/10/25 18:44 Dose: 40 mg Documented By: JIL Metoprolol Succinate (Metoprolol Er 50 Mg Tablet) 50 mg PO DAILY [facility] Empagliflozin [ Jardiance] 25 Mg Tablet 25 mg PO DAILY [facility] Nystatin (Nystatin Cream 30 Gm) 1 applic TOP BID [facility] Tamsulosin HCl (Tamsulosin 0.4 Mg Capsule) 0.4 mg PO DAILY [facility] Torsemide (Torsemide 10 Mg Tablet) 20 mg PO DAILY [facility] Reevaluation(s) Reevaluation #1: Patient has been observed in the emergency department for greater than 24 hours after presenting with generalized weakness. No acute medical problem has been identified, physical therapy and occupation therapy has seen the patient, they find him appropriate for snf facility, social work has seen the patient, insurance does not cover a snf facility at this point and home health is in place. is prefer that versus private pay. Patient is re-examined. He has no acute complaints at present mortise vital signs are normal heart and lungs are normal on exam abdomen is soft and nontender. He will be discharged to home to continue previous care with home health Vital Signs Vital signs: Vital Signs - 8 hr 02/11/25 10:30 02/11/25 11:00 02/11/25 11:30 Temperature Pulse Rate 70 64 66 Respiratory Rate 20 24 28 H Blood Pressure Pulse Oximetry 98 97 98 Oxygen Delivery Method 02/11/25 12:00 02/11/25 12:00 02/11/25 12:30 Temperature Pulse Rate 71 73 Respiratory Rate 27 H 27 H Blood Pressure 141/65 H Pulse Oximetry 98 97 Oxygen Delivery Method 02/11/25 13:00 02/11/25 13:30 02/11/25 14:00 Temperature Pulse Rate 72 68 69 Respiratory Rate 25 H 20 24 Blood Pressure Pulse Oximetry 97 97 97 Oxygen Delivery Method Room Air 02/11/25 14:30 08/05/25 14:34 02/11/25 14:34 Temperature Pulse Rate 73 72 Respiratory Rate 23 24 Blood Pressure 124/60 Pulse Oximetry 97 Oxygen Delivery Method 02/11/25 15:00 02/11/25 16:45 Temperature 97.6 F Pulse Rate 72 Respiratory Rate 29 H Blood Pressure Pulse Oximetry Oxygen Delivery Method MDM - Weakness <Kishore Hernandez, DO - Last Filed: 02/11/25 17:35> Lab Data Lab results narrative: Vital signs, perforator operator note, medication list, previous ER visits, and all imaging studies reviewed. Pt given 1 dose lasix 40mg IV x1. Chest xray showed no acute process. 1st set troponin normal, 2nd set pending. Differential dx nstemi, stemi, chf diastolic vs systolic vs combined, electrolyte derangement, pneumonia, uti, sepsis, covid, flu, rsv. Case s/o to at shift change pending final disposition. White blood cell count 4900, hemoglobin 10.7, platelets unremarkable. Glucose 138. BUN 34 with creatinine 1.85, serum CO2 22, sodium 135, potassium 4.8. Total bilirubin 1.7, AST 112, ALT 45, alkaline phosphatase 180. Lipase normal. Troponin negative unmeasurable. Pro BNP 656 mild elevation. 02/10/25 16:50 02/10/25 16:50 Labs: Lab Results 02/10/25 02/10/25 Range/Units 16:50 19:05 WBC 4.9 (4.5-11.0) X10^3/uL RBC 4.05 L (4.5-5.9) X10^6/uL Hgb 10.7 L (13.5-17.5) g/dL Hct 32.8 L (41-53) % MCV 81.1 (80-100) fL MCH 26.4 (26-34) PG MCHC 32.6 (30-36) % RDW 18.4 H (11.6-14.8) % Plt Count 293 (150-400) X10^3/uL Neut % (Auto) Not Reportable Lymph % (Auto) Not Reportable [place] % (Auto) Not Reportable Eos % (Auto) Not Reportable Baso % (Auto) Not Reportable Lymph # (Auto) Not Reportable [place] # (Auto) Not Reportable Baso # (Auto) Not Reportable Total Counted 100 Seg Neutrophils % 66.0 (38-70) % Lymphocytes % (Manual) 24.0 L (25-45) % Monocytes % (Manual) 9.0 (2-11) % Basophils % (Manual) 1.0 (0-1) % Neutrophils # (Manual) 3234 (9675-9754) /uL Platelet Estimate Incr RBC Morphology See below Hypochromasia 1+ H Anisocytosis 2+ H Target Cells 1+ H PT 11.1 (9.4-12.5) SECONDS INR 1.0 (0.9-1.3) APTT 29 (25.1-36.5) SECONDS Sodium 135 L (137-145) mmol/L Potassium 4.8 (3.4-5.1) mmol/L Chloride 102 (98-107) mmol/L Carbon Dioxide 22 (22-32) mmol/L BUN 34 H (9-20) mg/dL Creatinine 1.85 H (0.66-1.25) mg/dL Estimated GFR 36 L (>60) mL/min BUN/Creatinine Ratio 18.4 (6-22) Glucose 138 H (70-99) mg/dL Calcium 9.5 (8.4-10.2) mg/dL Magnesium 2.0 (1.6-2.3) mg/dL Total Bilirubin 1.7 H (0.2-1.3) mg/dL AST 112 H (17-59) IU/L ALT 45 (<50) IU/L Alkaline Phosphatase 280 H (38-126) U/L Total Creatine Kinase 79 (55-170) U/L Troponin I < 0.012 0.012 (0.01-0.034) ng/mL NT-Pro-B Natriuret Pep 656 H (<450) pg/mL Total Protein 7.0 (6.3-8.2) g/dL Albumin 3.3 L (3.5-5.0) g/dL Globulin 3.7 (1.7-4.1) g/dL Albumin/Globulin Ratio 0.9 L (1.0-2.8) Lipase 51 (23-300) U/L <Ricco Ruby MD - Last Filed: 02/11/25 18:09> Lab Data Attestation: I reviewed the patient's lab results. Lab results narrative: White blood cell count 4900, hemoglobin 10.7, platelets unremarkable. Glucose 138. BUN 34 with creatinine 1.85, serum CO2 22, sodium 135, potassium 4.8. Total bilirubin 1.7, AST 112, ALT 45, alkaline phosphatase 180. Lipase normal. Troponin negative unmeasurable. Pro BNP 656 mild elevation. Labs: Lab Results 02/10/25 02/10/25 Range/Units 16:50 19:05 WBC 4.9 (4.5-11.0) X10^3/uL RBC 4.05 L (4.5-5.9) X10^6/uL Hgb 10.7 L (13.5-17.5) g/dL Hct 32.8 L (41-53) % MCV 81.1 (80-100) fL MCH 26.4 (26-34) PG MCHC 32.6 (30-36) % RDW 18.4 H (11.6-14.8) % Plt Count 293 (150-400) X10^3/uL Neut % (Auto) Not Reportable Lymph % (Auto) Not Reportable [place] % (Auto) Not Reportable Eos % (Auto) Not Reportable Baso % (Auto) Not Reportable Lymph # (Auto) Not Reportable [place] # (Auto) Not Reportable Baso # (Auto) Not Reportable Total Counted 100 Seg Neutrophils % 66.0 (38-70) % Lymphocytes % (Manual) 24.0 L (25-45) % Monocytes % (Manual) 9.0 (2-11) % Basophils % (Manual) 1.0 (0-1) % Neutrophils # (Manual) 3234 (4788-7677) /uL Platelet Estimate Incr RBC Morphology See below Hypochromasia 1+ H Anisocytosis 2+ H Target Cells 1+ H PT 11.1 (9.4-12.5) SECONDS INR 1.0 (0.9-1.3) APTT 29 (25.1-36.5) SECONDS Sodium 135 L (137-145) mmol/L Potassium 4.8 (3.4-5.1) mmol/L Chloride 102 (98-107) mmol/L Carbon Dioxide 22 (22-32) mmol/L BUN 34 H (9-20) mg/dL Creatinine 1.85 H (0.66-1.25) mg/dL Estimated GFR 36 L (>60) mL/min BUN/Creatinine Ratio 18.4 (6-22) Glucose 138 H (70-99) mg/dL Calcium 9.5 (8.4-10.2) mg/dL Magnesium 2.0 (1.6-2.3) mg/dL Total Bilirubin 1.7 H (0.2-1.3) mg/dL AST 112 H (17-59) IU/L ALT 45 (<50) IU/L Alkaline Phosphatase 280 H (38-126) U/L Total Creatine Kinase 79 (55-170) U/L Troponin I < 0.012 0.012 (0.01-0.034) ng/mL NT-Pro-B Natriuret Pep 656 H (<450) pg/mL Total Protein 7.0 (6.3-8.2) g/dL Albumin 3.3 L (3.5-5.0) g/dL Globulin 3.7 (1.7-4.1) g/dL Albumin/Globulin Ratio 0.9 L (1.0-2.8) Lipase 51 (23-300) U/L Imaging Data Chest x-ray: Radiologist Impression: [address] [address] XRay Report Signed Patient: Anthony Enrique MR#: [id number] : 1945 Acct:[id number] Age/Sex: 80 / M Date of Service: 02/10/25 Loc: ED Accession Number: [id number] Procedure: XR chest 1V Ordering Provider: Kishore Hernandez D.O. PROCEDURE: XR CHEST 1V INDICATIONS: sob TECHNIQUE: One view of the chest was acquired. COMPARISON: None. FINDINGS: Surgical changes and devices: Cervical spinal fusion hardware is present. Prosthetic aortic valve. Lungs and pleura: Lungs are clear. No pleural effusions or pneumothorax. Mediastinum: Mediastinal contours appear normal. Heart size is normal. Bones and chest wall: No suspicious bony lesions. Overlying soft tissues appear unremarkable. IMPRESSION: No acute cardiopulmonary abnormality is seen. Approved by: Tyler Hoffman M.D. on 02/10/2025 at 18:27 ECG Data Attestation: I personally reviewed and interpreted this ECG as follows: Interpretation: 2001, normal sinus rhythm with rate of 74, right bundle branch block pattern, CA 208, QRS 150, QTC 461. MDM Narrative Medical decision making narrative: Vital signs, perforator operator note, medication list, previous ER visits, and all imaging studies reviewed. Pt given 1 dose lasix 40mg IV x1. Chest xray showed no acute process. 1st set troponin normal, 2nd set pending. Differential dx nstemi, stemi, chf diastolic vs systolic vs combined, electrolyte derangement, pneumonia, uti, sepsis, covid, flu, rsv. Case s/o to at shift change pending final disposition. 02/10/2025, Tung Jones. Sign-out from Dr. Hernandez. Awaiting repeat interval troponin and disposition plan. 80-year-old male has generalized weakness, history of CHF, bilateral lower extremity edema, apparently has not been giving him his Lasix for the last 2 weeks, bilateral lower extremity edema, no oxygen requirement, IV Lasix given in the emergency department. Initial troponin and EKG reportedly unremarkable. Repeat interval troponin pending. Assumed care. Lab data: White blood cell count 4900, hemoglobin 10.7, platelets unremarkable. Glucose 138. BUN 34 with creatinine 1.85, serum CO2 22, sodium 135, potassium 4.8. Total bilirubin 1.7, AST 112, ALT 45, alkaline phosphatase 180. Lipase normal. Troponin negative unmeasurable. Pro BNP 656 mild elevation. Interval troponin 0.012 also low. Chest x-ray no acute changes. See radiology report. donor services team leader consult, aware. They have relayed plan for home health referral to RN, PT, OT, carried made to [facility]. Patient will need ambulance transport coordinated if discharging home with his . 0700, consults for PT and OT pending. Possible NHP. Signed out to Dr Arrieta. <Gerry Arrieta MD - Last Filed: 02/11/25 16:18> Lab Data Labs: Lab Results 02/10/25 02/10/25 Range/Units 16:50 19:05 WBC 4.9 (4.5-11.0) X10^3/uL RBC 4.05 L (4.5-5.9) X10^6/uL Hgb 10.7 L (13.5-17.5) g/dL Hct 32.8 L (41-53) % MCV 81.1 (80-100) fL MCH 26.4 (26-34) PG MCHC 32.6 (30-36) % RDW 18.4 H (11.6-14.8) % Plt Count 293 (150-400) X10^3/uL Neut % (Auto) Not Reportable Lymph % (Auto) Not Reportable [place] % (Auto) Not Reportable Eos % (Auto) Not Reportable Baso % (Auto) Not Reportable Lymph # (Auto) Not Reportable [place] # (Auto) Not Reportable Baso # (Auto) Not Reportable Total Counted 100 Seg Neutrophils % 66.0 (38-70) % Lymphocytes % (Manual) 24.0 L (25-45) % Monocytes % (Manual) 9.0 (2-11) % Basophils % (Manual) 1.0 (0-1) % Neutrophils # (Manual) 3234 (0233-5554) /uL Platelet Estimate Incr RBC Morphology See below Hypochromasia 1+ H Anisocytosis 2+ H Target Cells 1+ H PT 11.1 (9.4-12.5) SECONDS INR 1.0 (0.9-1.3) APTT 29 (25.1-36.5) SECONDS Sodium 135 L (137-145) mmol/L Potassium 4.8 (3.4-5.1) mmol/L Chloride 102 (98-107) mmol/L Carbon Dioxide 22 (22-32) mmol/L BUN 34 H (9-20) mg/dL Creatinine 1.85 H (0.66-1.25) mg/dL Estimated GFR 36 L (>60) mL/min BUN/Creatinine Ratio 18.4 (6-22) Glucose 138 H (70-99) mg/dL Calcium 9.5 (8.4-10.2) mg/dL Magnesium 2.0 (1.6-2.3) mg/dL Total Bilirubin 1.7 H (0.2-1.3) mg/dL AST 112 H (17-59) IU/L ALT 45 (<50) IU/L Alkaline Phosphatase 280 H (38-126) U/L Total Creatine Kinase 79 (55-170) U/L Troponin I < 0.012 0.012 (0.01-0.034) ng/mL NT-Pro-B Natriuret Pep 656 H (<450) pg/mL Total Protein 7.0 (6.3-8.2) g/dL Albumin 3.3 L (3.5-5.0) g/dL Globulin 3.7 (1.7-4.1) g/dL Albumin/Globulin Ratio 0.9 L (1.0-2.8) Lipase 51 (23-300) U/L Discharge Plan Departure Patient Disposition: Home Clinical Impression: General weakness Activity Restrictions/Additional Instructions: No acute problem requiring hospitalization is identified today. At this point we recommend discharge to home with home health and continue previous medications and home health. If having fevers shortness of breath chest pain or other acute symptoms or if weakness is progressing recheck in the emergency department. Make arrangements to follow up soon with her primary care provider. Prescriptions: No Action bupropion HCl 150 mg tablet extended release 24 hr 150 mg PO DAILY Jardiance 25 mg tablet 25 mg PO DAILY nystatin 100,000 unit/gram cream 1 applic topical BID (DME) [employer] Davin 2 Sensor Kit See Rx Instructions .ROUTE .MEDSUPPLY Qty: 1 Patient Comments: apply 1 SENSOR to back OF UPPER ARM REMOVE AND REPLACE every 14 d... (REFER TO PRESCRIPTION NOTES). Rx Instructions: As directed amlodipine 5 mg tablet 5 mg PO DAILY rosuvastatin 40 mg tablet 40 mg PO DAILY carvedilol 6.25 mg tablet 6.25 mg PO BID ketoconazole 2 % shampoo topical QWEEK tamsulosin 0.4 mg capsule 0.4 mg PO DAILY torsemide 20 mg tablet 20 mg PO DAILY metoprolol succinate 50 mg tablet extended release 24 hr 50 mg PO DAILY clotrimazole 1 % cream topical BID Referrals: Miscellaneous,Doctor, [Non-Staff, Medical] Stand Alone Forms: Patient Portal/API
[2025-02-10 17:07] LABS: INR 1.0 (0.9-1.3); Prothrombin Time 11.1 SECONDS (9.4-12.5)
[2025-02-10 17:10] LABS: PTT Partial Thromboplastin Tim 29 SECONDS (25.1-36.5)
[2025-02-10 17:15] LABS: Alanine Aminotransferase 45 IU/L (<50); Albumin 3.3 g/dL (3.5-5.0); Albumin Globulin Ratio 0.9 (1.0-2.8); Alkaline Phosphatase 280 U/L (38-126); Blood Urea Nitrogen 34 mg/dL (9-20); Calcium 9.5 mg/dL (8.4-10.2); Carbon Dioxide 22 mmol/L (22-32); Chloride 102 mmol/L (98-107); Creatine Kinase 79 U/L (55-170); Estimated Glomerular Filt Rate 36 mL/min (>60); Globulin 3.7 g/dL (1.7-4.1); Glucose 138 mg/dL (70-99); HEMOLYSIS < 15 (0-50); Hematocrit 32.8 % (41-53); Hemoglobin 10.7 g/dL (13.5-17.5); Lipase 51 U/L (23-300); Magnesium 2.0 mg/dL (1.6-2.3); Mean Corpuscular HGB Conc 32.6 % (30-36); Mean Corpuscular Hemoglobin 26.4 PG (26-34); Mean Corpuscular Volume 81.1 fL (80-100); Platelet Count 293 X10^3/uL (150-400); Potassium 4.8 mmol/L (3.4-5.1); Sodium 135 mmol/L (137-145); Total Protein 7.0 g/dL (6.3-8.2)
[2025-02-10 17:16] LABS: Add Manual Diff / Slide Review YES
[2025-02-10 17:24] LABS: NT-proBNP (BNP-Adult 18+) 656 pg/mL (<450); Troponin I < 0.012 ng/mL (0.01-0.034)
--- NOTE | 2025-02-10 17:52 | DI.RAD.S_ITS ---
PROCEDURE: XR CHEST 1V INDICATIONS: sob TECHNIQUE: One view of the chest was acquired. COMPARISON: None. FINDINGS: Surgical changes and devices: Cervical spinal fusion hardware is present. Prosthetic aortic valve. Lungs and pleura: Lungs are clear. No pleural effusions or pneumothorax. Mediastinum: Mediastinal contours appear normal. Heart size is normal. Bones and chest wall: No suspicious bony lesions. Overlying soft tissues appear unremarkable. IMPRESSION: No acute cardiopulmonary abnormality is seen. Approved by: Tyler Hoffman M.D. on 02/10/2025 at 18:27
[2025-02-10 18:31] LABS: Basophils Percent Manual 1.0 % (0-1); Lymphocytes Percent Manual 24.0 % (25-45); Monocytes Percent Manual 9.0 % (2-11); Neutrophils Absolute Manual 3234 /uL (3000-5900); Segmented Neutrophils Percent 66.0 % (38-70); Total Cells Counted 100
[2025-02-10 18:33] LABS: Anisocytosis 2+
[2025-02-10 18:34] LABS: Target Cells 1+
[2025-02-10 18:35] LABS: Hypochromasia 1+
[2025-02-10] MEDS: FUROSEMIDE 40 MG/4 ML VIAL IV (18:44)
--- NOTE | 2025-02-10 18:45 | CM.DANOTE ---
ED TRAINING LEAD DCP Assessment Note: Pt is a 80yo male, resident of [place], is seen in the ED for weakness (sudden onset in the last few days) and bilateral swelling. Hx of COPD, Hypertension. Pt lives in a house with his , Bunny. Pt's Primary Care Provider is Dr. Seymour Amezquita ([facility]) and insurance is Medicare and [facility]. Reviewed chart and discussed with multidisciplinary team pt's medical status and initial discharge needs. ED TRAINING LEAD met w/patient at bedside; introduced self and role. Present is pt's , Bunny. Patient was found in bed, alert and oriented but hard of hearing, requested for this TRAINING LEAD to continue assessment with . Pt expressed preference in home health referral if pt to be discharged home, no preference in agency, just in whoever will start soonest. Pt states she is hopeful for home health and caregiving support as she navigates pt new weakness. She states pt was able to get out of bed and ambulate with [facility] just two weeks ago. Pt has no hx of SNF rehab. Pt inquired about private caregiving, confirmed that pt does not qualify for Medicaid and does not have VA benefits. TRAINING LEAD provided contact and rate information for [facility]. Pt request with assistance with healthcare and financial POA. TRAINING LEAD drafted documents for pt and educated on 2 witnesses needed as well as notary for financial POA. Provided printed copy to as well as sent documents to email: [email or web address]. TRAINING LEAD sent initial referral to [facility] per vendor calendar via secure email. F2F signed by Dr. Hernandez. Plan: Medical Work up to continue, anticipating dc home with [facility] follow up. Will need to be transported via stretcher transport. CM team will follow closely for coordination of discharge plans. Stephy Bolden CLINICAL DIETITIAN Discharge Planning/Care Management CM Discharge Assessment Start: 02/10/25 18:16 Freq: Status: Active Protocol: Document 02/10/25 18:16 MW (Rec: 02/10/25 18:20 MW [id number]) Discharge Planning Assessment Assigned Discharge REBECCA Keyes Field Laborer DPOA/Assigned Bunny, Spouse Designee Name Contact Information [phone] Advance Directives? No Prior Living Mobile home Arrangements Household Members spouse Type of Relies on Others transporation used prior to admit Independent with ADL No 's Is patient alert and Yes oriented? Needs Assistance Bathing,Grooming,Meal Prep,Toileting,Managing With Medications,Home Chores / Shopping Caregiver for No Another DME Already Rented / Elevated Toilet Seat,FWW / Walker Owned Patient/Family Home with Home Health Preference Referrals Initiated Home Health Medicare Choice List Yes Provided SNF/HH Preference No preference for HH Review Status In Process Please Provide Date 02/10/25 Initial DC Assessment Was Performed Next Review Type Continued Stay Review
[2025-02-10 19:38] LABS: Troponin I 0.012 ng/mL (0.01-0.034)
--- NOTE | 2025-02-10 20:02 | EKG_ITS ---
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
[2025-02-11] VITALS (33 sets, daily range): BP systolic 124–148; BP diastolic 58–68; PULSE 62–74; RESP 20–37; TEMP 36.4; O2SAT 96–98
--- NOTE | 2025-02-11 01:43 | PC.NURSE ---
Pt appears to be sleeping with eyes closed and slow steady breathing, did not wake up for reassessment at this time.
--- NOTE | 2025-02-11 14:20 | PT.IIE ---
Medical History (Last Updated 12/19/24 @ 20:56 by Madalyn Nunez) COPD (chronic obstructive pulmonary disease) Hearing decreased Hyperlipidemia Hypertension Physical deconditioning Type 2 diabetes mellitus with diabetic neuropathy, unspecified Vision disorder Physical Therapy Inpatient Evaluation/Re-Eval M1 PT/OT-IP Prior Functional Status Start: 02/11/25 17:38 Freq: Status: Active Protocol: Document 02/11/25 14:20 AB (Rec: 02/11/25 17:58 AB [id number]) Medical Review Prior Functional Status Medical History Yes Reviewed Communication pt slow to respond to questions and instructions Mobility and Gait spouse provided most of pt's PLOF and home set up: stated that pt has declined in mobility for the last week needing assistance with sit to stand and ambulation using FWW. prior to that, pt was modified independent with ambulation using a FWW. Social History Household Members spouse Living Arrangements Mobile home Number of Floors ( One Floor Floors) Number of Stairs To 3 steps with bilateral wide rails and can only hold on Enter/Railing? to 1 rail at a time Home Environment Standard Height Toilet Home Equipment Front Wheel Walker,Manual Wheelchair,Shower Seat with Backrest,Hand Held Shower,Lift Recliner Additional Social has a toilet safety frame History Comment pt sleeps on a recliner; spouse just ordered a lift chair for pt pt only does sponge bathing M2 PT-IP Current Condition Start: 02/11/25 17:38 Freq: Status: Active Protocol: Document 02/11/25 14:20 AB (Rec: 02/11/25 17:58 AB [id number]) Physical Therapy Current Condition Current Condition Evaluation Date 02/11/25 Treatment Diagnosis weakness Onset Date 02/11/25 M3 PT-IP Subjective Start: 02/11/25 17:38 Freq: Status: Active Protocol: Document 02/11/25 14:20 AB (Rec: 02/11/25 17:58 AB [id number]) Subjective Physical Therapy Visit Type Type Initial Evaluation Visit Start Time 14:20 Visit Stop Time 15:30 Notes pt seen for split visits: 1420 to 1440 and 1455 to 1530 Number of DANCE TEACHER Visits 0 M4 PT-IP Mobility and Gait Start: 02/11/25 17:38 Freq: Status: Active Protocol: Document 02/11/25 14:20 AB (Rec: 02/11/25 17:58 [id number]) PT-Bed Mobility Assessment Supine to Sit Supine to Sit Maximum Assistance,1 Person Assistance,2 Person Assistance,Head of Bed Elevated,Bedrails Sit to Supine Sit to Supine Maximum Assistance,2 Person Assistance PT-Transfer Assessment Sit to and From Stand Sit to and from Maximum Assistance,1 Person Assistance,Use of Upper Stand Extremities Equipment Transfer Assistive Gait Belt,Front Wheeled Walker Device Orthotic/Prosthetic No Devices or Brace: Comments Mobility Comments pt seen in the ED. pt in bed and spouse in room. obtained PLOF and home set up. pt is [place] and also needs increase time to respond to questions and instruction. spouse provided most of pt's info. pt needing to be cleaned up. informed nurse. PT needed to step up for nurse/NAC to clean and change pt. Resumed PT after pt was cleaned up. pt completed supine to sit max A and max cues. max A for sitting balance on EOB. max A for repositioning to EOB and able to sit min A after repositioning. sit to stand from EOB max A and max cues and pt ambulated ~ 8 ft using FWW mod A x 2 and max cues. increase unsteadiness midway with ambulation and pt stated that his legs are getting weak. max cues with all tasks. pt sat back on EOB. max A x 2 for sit to supine. positioned pt in bed. call light and table placed within reach. informed spouse regarding SNF recommendation for rehabilitation and spouse stated that if she can be assured that it is really for rehab and that pt will not just be left in bed and not cleaned. informed spouse that PT cannot speak for any facility but recommendation is SNF due to pt's weakness and level of assistance needed. informed spouse that it pt goes home, he will need 24/7 assist and HHPT. may need w/c for mobility. pt also has steps to enter the the trailer and spouse stated that they are arranging an ambulance to get him into the house. informed case briefer regarding pt's mobility and d/c plan. Gait Assessment Gait Gait Assistance Moderate Assistance,2 Person Assist Required: Distance (Feet) 8 Able to Maintain Yes Weight Bearing Status During Gait Assistive Devices Assistive Device Gait Belt,Front Wheeled Walker Orthotic/Prosthetic No Devices or Brace: Gait Deviations General Gait Pattern Ataxic,Decreased Stride Length,Decreased Feet Clearance ,Flexed Trunk,Step-to Gait Factors Limiting Gait Function Factors Limiting Decreased Activity Tolerance,Decreased Strength, Gait Function Difficulty Following Directions,Poor Balance,Poor Safety Awareness PT-Balance Assessment Sitting Balance and Reactions Static Sitting Fair Balance Ability Dynamic Sitting Poor Balance Ability Standing Balance and Reactions Static Standing Poor Balance Ability Dynamic Standing Poor Balance Ability Device Used FWW M5 PT-IP Objective Assessments Start: 02/11/25 17:38 Freq: Status: Active Protocol: Document 02/11/25 14:20 AB (Rec: 02/11/25 17:58 AB [id number]) Orientation Orientation/Cognition Level of Alertness Confusional State Orientation Name Language Function Hard of Hearing Ability Safety Awareness Decreased Safety Awareness Memory Description Short Term Impaired,Retirement Impaired Comments delayed response to questions and instructions Strength Lower Extremity Strength Assessment Within Functional Limits Muscle Tone Muscle Tone WNL Yes M6 PT-IP Treatment Start: 02/11/25 17:38 Freq: Status: Active Protocol: Document 02/11/25 14:20 AB (Rec: 02/11/25 17:58 AB [id number]) Physical Therapy Treatment Education Education Provided Safety M7 PT-IP Assessment and Plan Start: 02/11/25 17:38 Freq: Status: Active Protocol: Document 02/11/25 14:20 AB (Rec: 02/11/25 17:58 AB [id number]) PT Summary Assessment and Plan Potential Rehabilitation Fair Potential Status of Condition Evolving at Evaluation Summary Impairments Pain,ROM,Strength,Balance,Coordination,Sensation,Tone, Cognition,Bed Mobility,Transfers,Gait,Activity Tolerance Assessment Summary pt seen in the ED for PT eval to determine safe d/c plan. pt is an 80 y/o M who is admitted for weakness. spouse stated that pt has been getting weak for the last weak and needing more assistance. pt needing max A x 2 for bed mobility, max A for sit to stand and mod A x 2 for ambulation using fWW ~ 8 ft. pt presents with decrease strength and easily fatigued affecting mobility and assistance needed. pt will require 24/7 assist and will benefit from SNF. spouse refuse SNF. pt will benefit from HHPT if pt goes home. case briefer aware. Goals Bed Mobility Goal Minimal Assistance Transfer Goal Minimal Assistance,Front Wheeled Walker Gait Goal Minimal Assistance,Front Wheel Walker Gait Distance 25 Days to Meet Goals 10 Frequency of Treatment Frequency Of Once a Day Treatment Treatment Plan Physical Therapy Bed Mobility Training,Transfer Training,Gait Training, Treatment Plan Therapeutic Exercise,Balance Retraining,Post Op Education,Hot or Cold Pack,Neuromuscular Re-ed, Coordination Retraining Recommendations To Nursing Amount of Assist 2 Person Assist Needed Discharge Recommendations PT Discharge SNF Rehab Recommendations Transportation Needs Wheelchair/Cabulance,Stretcher/Ambulance at Discharge - PT assist 2
--- NOTE | 2025-02-11 14:28 | PC.NURSE ---
PT/OT at the bedside. is at the bedside.
--- NOTE | 2025-02-11 15:30 | OT.IP.EVAL ---
Past Medical History (Last Updated 12/19/24 @ 20:56 by Madalyn Nunez) COPD (chronic obstructive pulmonary disease) Hearing decreased Hyperlipidemia Hypertension Physical deconditioning Type 2 diabetes mellitus with diabetic neuropathy, unspecified Vision disorder Occupational Therapy Inpatient Evaluation/Re-Eval M1 PT/OT-IP Prior Functional Status Start: 02/11/25 17:38 Freq: Status: Active Protocol: Document 02/11/25 14:20 [facility] (Rec: 02/11/25 18:11 [facility] Desktop) Medical Review Prior Functional Status Communication Pt needing increased time to comprehend and get his words out. Pt's states he is actually better than his baseline now. Mobility and Gait Pt's states able to use FWW one week ago to get to the bathroom. Pt's states has to assist him to stand and walk with the FWW now. Activities of Daily Pt's does all IADL needs and has been having to Living and IADL's assist with most ADL needs now. Prior two week ago states pt was able to use the bathroom on his own. Prior pt was able to walk to the doorway of the bathroom with FWW and parked the FWW outside the bathroom door and able to use the counter to get to the toilet. Social History Household Members spouse Living Arrangements Mobile home Number of Floors ( One Floor Floors) Number of Stairs To 3 steps with bilateral rails Enter/Railing? Home Environment Standard Height Toilet,Walk in Shower Home Equipment Front Wheel Walker,Manual Wheelchair,Shower Seat with Backrest,Hand Held Shower Additional Social Pt has a toilet safety frame and pt's just ordered History Comment as lift recliner for the pt. M2 OT-IP Current Condition Start: 02/11/25 17:56 Freq: Status: Active Protocol: Document 02/11/25 14:20 [facility] (Rec: 02/11/25 18:11 [facility] Desktop) Occupational Therapy Current Condition Current Condition Evaluation Date 02/11/25 Treatment Diagnosis Generalized weakness Diagnosis Onset Date 02/10/25 M3 OT- IP Subjective and Pain Start: 02/11/25 17:56 Freq: Status: Active Protocol: Document 02/11/25 14:20 [facility] (Rec: 02/11/25 18:11 [facility] Desktop) OT- Subjective Occupational Therapy Visit Type Type Initial Evaluation Visit Start Time 14:20 Visit Stop Time 15:30 Notes Pt seen from [id number], [id number] time in between nursing staff cleaning pt up as soiled. Occupational Therapy Visit Comments Patient Comments Pt, , and PT present for OT eval. Patient/Caregiver TO go home. Goals OT Pain Assessment Pain When Pain Assessed At Rest Pain Present Pain Present Denied Pain M4 OT- IP ADL's Start: 02/11/25 17:56 Freq: Status: Active Protocol: Document 02/11/25 14:20 [facility] (Rec: 02/11/25 18:11 [facility] Desktop) OT LAY-[id number]-[id number] Comments OT Self-Feeding Not at meal time. Comments OT ADL-Grooming Comments OT Grooming Comments Not observed. OT ADL-Oral Care Comments Oral Care Comments Not performed. OT ADL-Dressing General Eval Lower Body Dressing Maximum Assistance Ability OT ADL-Toileting General Evaluation Toileting Ability Total Assistance Comments OT Toileting Nursing staff x2 assisted for brief and hygiene needs. Comments OT ADL-Bathing Comments OT Bathing Comments Per pt's just sponges pt off at home. M5 OT- IP IADL's Start: 02/11/25 17:56 Freq: Status: Active Protocol: Document 02/11/25 14:20 [facility] (Rec: 02/11/25 18:11 [facility] Desktop) OT-Instrumental Activities of Daily Living Home Safety Awareness Awareness of Need Decreased Awareness for Assistance at Home Medication Management Medication Caregiver Administers Management Money Management Money Management Caregiver Provides Assistance Meal Preparation Meal Preparation Caregiver Provides Assist Flanger Flanger Caregiver Provides Assist M6 OT- IP Functional Cognition Start: 02/11/25 17:56 Freq: Status: Active Protocol: Document 02/11/25 14:20 [facility] (Rec: 02/11/25 18:11 [facility] Desktop) Cognitive Factors Limiting Selfcare Function Cognitive Ability Level of Alertness Alert Patient Orientation Name Attention Span Capable of Focused Attention,Capable of Sustained Ability Attention Ability to Follow Able to Follow One Step Commands with Increased Time, Commands Able to Follow One Step Commands with Repetition Cognitive Comments Cognitive Assessment Pt very [place], Pt needing increased time to comprehend Comments and follow commands. Per pt's states now he is better than his baseline cognitively today. OT- Vision and Hearing OT- Hearing Assessment OT- Hearing Hearing Impaired Assessment OT- Vision Assessment Visual Acuity Glasses All The Time Vision Assessment Pt able to scan and track therapist in the room. Comments M7 OT- IP Mobility and Balance Start: 02/11/25 17:56 Freq: Status: Active Protocol: Document 02/11/25 14:20 [facility] (Rec: 02/11/25 18:11 [facility] Desktop) OT- Bed Mobility Assessment Supine to Sit Supine to Sit Assist Maximum Assistance,1 Person Assistance OT-Transfer Assessment Sit to and From Stand Sit to and from Maximum Assistance,1 Person Assistance Stand Transfers Transfer Ability Moderate Assistance,2 Person Assistance Devices Transfer Assistive Gait Belt,Front Wheeled Walker Devices Comments Mobility Comments MAXA X 1 to help get his trunk upright. MAX AX 1 to stand to the FWW. Pt tends to have the FWW too far forwards. Pt needing MODA X 2 with FWW, assist to guide the FWW and for his balance. Pt is very unsteady on his feet and is a high fall risk. Pt has a very kyphotic posture at neck and trunk.If pt having to go home, may be best to use the WC and just assist pt with transfers. OT- Balance Assessment Sitting Balance and Reactions Static Sitting Fair Balance Ability Dynamic Sitting Poor Balance Ability Standing Balance and Reactions Static Standing Poor Balance Ability Dynamic Standing Poor Balance Ability M8 OT- IP Objective Assessments Start: 02/11/25 17:56 Freq: Status: Active Protocol: Document 02/11/25 14:20 [facility] (Rec: 02/11/25 18:11 [facility] Desktop) OT Strength Comments Strength Comments WFL for needs at 4-/5 to 4+/5 from proximal to distal. M9 OT- IP Assessment and Plan Start: 02/11/25 17:56 Freq: Status: Active Protocol: Document 02/11/25 18:11 [facility] (Rec: 02/11/25 18:14 [facility] Desktop) OT Summary Assessment and Plan Potential Rehabilitation Fair Potential Analytic Complexity Moderate at Evaluation Summary OT Impairments Strength,Balance,Functional Cognition,Functional Mobility,Self-Feeding,Grooming,Dressing,Toileting, Bathing,Toilet Transfers,Shower Transfers,Activity Tolerance Progress Towards Slow Progress due to Medical Issues,Slow Progress due Goals to Activity Tolerance,Slow Progress due to Cognition Assessment Summary Pt MOD complexity and main barriers are steps, decreased activity tolerance, decreased safety awareness, and now needing two person assist for safety and mobility needs. Pt's states pt able to walk with FWW one week ago and now needing assist for her to stand and walk with the FWW. Pt will benefit from skilled rehab. Goals Self-Feeding Goal Independent Grooming Goal Independent Dressing Goal Minimal Assistance Toileting Goal Minimal Assistance Bathing Goal Moderate Assistance Toilet Transfer Goal Contact Guard Assistance Shower Transfer Goal Minimal Assistance Days to Meet Goals 10 Frequency of Treatment Other frequency 5x/week Treatment Plan OT Treatment Plan ADL Training,Functional Mobility,Patient/Family Education,Discharge Planning Discharge Recommendations OT Discharge SNF Rehab Recommendations Transportation Needs Wheelchair/Cabulance at Discharge
--- NOTE | 2025-02-11 15:46 | CM.SWNOTE ---
ED POLICY CHANGE CLERKS SUPERVISOR Note POLICY CHANGE CLERKS SUPERVISOR discusses Medicare coverage of SNF rehab with patient's spouse and discusses that patient does not meet criteria for hospital admission. Patient's spouse denies preference for private pay SNF rehab. PT and OT evaluate patient and recommend SNF rehab, they report that spouse stated they are unable to pay privately for SNF rehab. Patient's spouse requests POLICY CHANGE CLERKS SUPERVISOR to enter room again and POLICY CHANGE CLERKS SUPERVISOR informs her of the general cost of private pay SNF and she states that she cannot afford this. POLICY CHANGE CLERKS SUPERVISOR presents with empathy and understanding of this difficult situation. POLICY CHANGE CLERKS SUPERVISOR encourages patient to set up a caregiver for patient and access appropriate DME for patient. POLICY CHANGE CLERKS SUPERVISOR provides spouse with Colleen HERNANDEZ brochure, lists of private caregivers and caregiver agencies, senior resource guide and resources. Patient's spouse endorses preference for BLS if patient is discharging home. POLICY CHANGE CLERKS SUPERVISOR informs Colleen HERNANDEZ of patient's d/c to home. Plan: patient to d/c to home upon medical clearance via BLS, Colleen HERNANDEZ to f/u with patient, patient's spouse to seek out caregiver and DME for patient. Yary Hu, ADMINISTRATIVE SERVICES MANAGER
== END 2025-02-11 16:36 | disposition home or self-care (01) ==
PROVIDERS: Family Medicine; Emergency Provider Emergency Medicine; PCP Student in an Organized Health Care Education/Training Program
DX: R53.1 Weakness (principal); R60.9 Edema, unspecified
CPT/HCPCS: 36415; 71045; 80053; 82550; 83690; 83735; 83880; 84484; 85007; 85025; 85610; 85730; 93005; 97162; 97166; 97530; 99284; J1938